=== PATIENT | female | born 1995 | race Caucasian/White ===

== ENCOUNTER → 2017-08-07 | Outpatient (CLI) | payer OTHER ==
[2017-08-07 18:21] LABS: BASO % 0.2 % (0.0-1.0); EOS % 0.5 % (0.0-3.0); HEMATOCRIT 41.1 % (36.0-47.0); HEMOGLOBIN 13.9 g/dl (12.0-15.5); IMMATURE GRANULOCYTE % 0.2 % (0-3.0); LYMPH # 1.7 10^3/uL (1.5-6.5); MEAN CORPUSCULAR HEMOGLOBIN 28.4 pg (27.0-33.0); MEAN CORPUSCULAR HGB CONC 33.8 g/dl (32.0-36.5); MONO # 0.2 10^3/uL (0.0-0.8); NEUTROPHILS # 2.3 10^3/uL (1.8-7.7); NEUTROPHILS % 54.1 % (36.0-66.0); PLATELET COUNT, AUTOMATED 148 10^3/uL (150-450); RED BLOOD COUNT 4.89 10^6/uL (4.00-5.40); RED CELL DISTRIBUTION WIDTH 11.8 % (11.5-14.5); WHITE BLOOD COUNT 4.2 10^3/uL (4.0-10.0)
[2017-08-07 20:27] LABS: CHLAMYDIA DNA AMPLIFICATION NEGATIVE (NEGATIVE); GC DNA AMPLIFICATION NEGATIVE (NEGATIVE)
[2017-08-08 10:40] LABS: RUBELLA IgG QUALITATIVE IMMUNE (IMMUNE)
[2017-08-08 11:03] LABS: HBsAg Prenatal NEGATIVE (NEGATIVE)
[2017-08-08 11:10] LABS: HIV 1&2 SCREEN CENTAUR NEGATIVE (NEGATIVE)
== END ==
LOC: M SMT 13:33
DX: Z3A.09 9 weeks gestation of pregnancy (principal)
CPT/HCPCS: 86762

== ENCOUNTER → 2017-09-04 | Outpatient (REF) | payer OTHER | LOC: M LAB REF 17:01 | DX: Z34.82 Encounter for supervision of other normal pregnancy, second trimester (principal); Z3A.00 Weeks of gestation of pregnancy not specified ==

== ENCOUNTER → 2017-10-13 | Outpatient (CLI) | payer OTHER | LOC: M RAD 12:16 | DX: Z34.82 Encounter for supervision of other normal pregnancy, second trimester (principal); Z3A.17 17 weeks gestation of pregnancy | CPT/HCPCS: 76811 ==

== ENCOUNTER → 2017-11-06 | Outpatient (CLI) | payer OTHER | LOC: M RAD 14:20 | DX: Z34.82 Encounter for supervision of other normal pregnancy, second trimester (principal); Z36.89 Encounter for other specified antenatal screening; Z3A.21 21 weeks gestation of pregnancy | CPT/HCPCS: 76816 ==

== ENCOUNTER → 2017-12-11 | Outpatient (CLI) | payer OTHER ==
[2017-12-11 13:11] LABS: HEMATOCRIT 32.6 % (36.0-47.0); HEMOGLOBIN 10.7 g/dl (12.0-15.5); MEAN CORPUSCULAR HEMOGLOBIN 29.6 pg (27.0-33.0); MEAN CORPUSCULAR HGB CONC 32.8 g/dl (32.0-36.5); MEAN CORPUSCULAR VOLUME 90.1 fl (80.0-96.0); PLATELET COUNT, AUTOMATED 208 10^3/uL (150-450); RED BLOOD COUNT 3.62 10^6/uL (4.00-5.40); RED CELL DISTRIBUTION WIDTH 12.5 % (11.5-14.5); WHITE BLOOD COUNT 6.1 10^3/uL (4.0-10.0)
[2017-12-11 13:33] LABS: GLUCOSE CHALLENGE TEST 1 HOUR 91 MG/DL (LESS THAN 140)
== END ==
LOC: M SMT 10:12
DX: Z34.82 Encounter for supervision of other normal pregnancy, second trimester (principal); Z36.89 Encounter for other specified antenatal screening
CPT/HCPCS: 82950

== ENCOUNTER → 2018-02-19 | Outpatient (REF) | payer OTHER | LOC: M LAB REF 17:36 | DX: Z34.03 Encounter for supervision of normal first pregnancy, third trimester (principal); Z36.85 Encounter for antenatal screening for Streptococcus B | CPT/HCPCS: 87186 ==

== ENCOUNTER 2018-03-15 20:30 | Inpatient (IN) | payer OTHER ==
[2018-03-15] MEDS ORDERED: OXYTOCIN DRIP 30 UNITS in APPROPRIATE DILUENT 1 EA IV (21:15)
[2018-03-15 21:41] LABS: HEMOGLOBIN 11.5 g/dl (12.0-15.5); MEAN CORPUSCULAR HEMOGLOBIN 27.4 pg (27.0-33.0); MEAN CORPUSCULAR HGB CONC 32.9 g/dl (32.0-36.5); MEAN CORPUSCULAR VOLUME 83.5 fl (80.0-96.0); PLATELET COUNT, AUTOMATED 184 10^3/uL (150-450); RED BLOOD COUNT 4.19 10^6/uL (4.00-5.40); RED CELL DISTRIBUTION WIDTH 14.6 % (11.5-14.5); WHITE BLOOD COUNT 8.8 10^3/uL (4.0-10.0)
[2018-03-15] MEDS: PENICILLIN G POTASSIUM IV 5 MU in D5W MINI-BAG PLUS 100 ML IV (22:22)
[2018-03-15] MEDS: LR 1,000 ML IV (22:22)
[2018-03-16] MEDS ORDERED: FENTANYL 2MCG/ML ROPIVACAINE 0.2% IN 0.9% NACL 200ML IVBAG As Ordered (02:01)
[2018-03-16] MEDS ORDERED: PENICILLIN G POTASSIUM IV 2.5 MU in APPROPRIATE DILUENT 1 EA IV (02:30)
[2018-03-16] MEDS ORDERED: EPIDURAL/PCA KEYS XX (02:38)
[2018-03-16] MEDS ORDERED: ePHEDrine SULFATE 25 MG/5 ML(5MG/ML) SYRINGE IV (02:38)
[2018-03-16] MEDS ORDERED: REFRIGERATOR IV KEYS XX (02:38)
[2018-03-16] MEDS ORDERED: diphenhydrAMINE INJ 50MG/ML VIAL (J1200) IV (02:38)
[2018-03-16] MEDS ORDERED: FENTANYL/ROPIVACAINE/NACL BAG 200 ML EPIDURAL (02:38)
[2018-03-16] MEDS ORDERED: EPIDURAL COMMENT XX (02:38)
[2018-03-16] MEDS ORDERED: ONDANSETRON 4MG/2ML VIAL (J2405) IV (02:38)
[2018-03-16] MEDS ORDERED: NALOXONE INJ 0.4 MG/1 ML VIAL (J2310) IV (02:38)
[2018-03-16] MEDS ORDERED: ePHEDrine SULFATE 25 MG/5 ML(5MG/ML) SYRINGE As Ordered (03:14)
[2018-03-16] MEDS ORDERED: DOCUSATE SODIUM 100 MG CAP PO (06:30)
[2018-03-16] MEDS ORDERED: MEASLES,MUMPS,RUBELLA VACCINE INJ (MMR-II) (90707) SC (06:30)
[2018-03-16] MEDS ORDERED: MOM 30ML SUSPENSION UDC PO (06:30)
[2018-03-16] MEDS ORDERED: ANUSOL HC CREAM 30GM TOP (06:30)
[2018-03-16] MEDS ORDERED: DIBUCAINE 1% OINTMENT 30GM TOP (06:30)
[2018-03-16] MEDS ORDERED: METHYLERGONOVINE MALEATE 0.2 MG TAB PO (06:30)
[2018-03-16] MEDS ORDERED: RHOGAM 300 MCG (1500 IU) INJ (J2790) IM (06:30)
[2018-03-16] MEDS: PRENATAL VITAMINS CHEWABLE TABLET PO (08:40)
[2018-03-16] MEDS: OXYTOCIN DRIP 30 UNITS in APPROPRIATE DILUENT 1 EA IV (08:40)
[2018-03-16] MEDS: ACETAMINOPHEN 500 MG TAB PO (20:20)
[2018-03-17] MEDS: PRENATAL VITAMINS CHEWABLE TABLET PO (07:31)
[2018-03-17] MEDS: IBUPROFEN 800 MG TAB PO (07:31)
[2018-03-17] MEDS: ACETAMINOPHEN 500 MG TAB PO (19:32)
[2018-03-18] MEDS: PRENATAL VITAMINS CHEWABLE TABLET PO (09:45)
== END 2018-03-18 12:50 | disposition home or self-care (01) | DRG 560 ==
LOC: M LDO 20:30 → M OBS 03-16 09:27 → M LDI 21:10
PROC: 10E0XZZ Delivery of Products of Conception, External Approach (ICD-10-PCS; principal; 2018-03-16)
DX: O48.0 Post-term pregnancy (principal); O64.5XX0 Obstructed labor due to compound presentation, not applicable or unspecified; O99.824 Streptococcus B carrier state complicating childbirth; Z37.0 Single live birth; Z3A.40 40 weeks gestation of pregnancy

== ENCOUNTER 2018-06-20 19:20 | Emergency (ER) | payer OTHER ==
[~2018-06-20] VITALS: Ht 154.9 cm; Wt 64.3 kg
[~2018-06-20 19:20] MED LIST: IBUP-1114 PO; MAPA500T2 PO; PRENTAB9 PO
[2018-06-20 21:03] LABS: BASO % 0.4 % (0.0-1.0); EOS % 0.6 % (0.0-3.0); HEMATOCRIT 40.2 % (36.0-47.0); HEMOGLOBIN 12.7 g/dl (12.0-15.5); LYMPH # 1.4 10^3/uL (1.5-6.5); LYMPH % 29.3 % (24.0-44.0); MEAN CORPUSCULAR HEMOGLOBIN 26.3 pg (27.0-33.0); MEAN CORPUSCULAR HGB CONC 31.6 g/dl (32.0-36.5); MEAN CORPUSCULAR VOLUME 83.4 fl (80.0-96.0); MONO # 0.3 10^3/uL (0.0-0.8); MONO % 7.3 % (0.0-5.0); NEUTROPHILS # 2.9 10^3/uL (1.8-7.7); NEUTROPHILS % 62.2 % (36.0-66.0); PLATELET COUNT, AUTOMATED 240 10^3/uL (150-450); RED BLOOD COUNT 4.82 10^6/uL (4.00-5.40); WHITE BLOOD COUNT 4.7 10^3/uL (4.0-10.0)
[2018-06-20 21:33] LABS: ALBUMIN 3.6 GM/DL (3.2-5.2); ALT/SGPT 113 U/L (12-78); BILIRUBIN,DIRECT 0.4 MG/DL (0.0-0.2); BILIRUBIN,TOTAL 0.6 MG/DL (0.2-1.0); BLOOD UREA NITROGEN 8 MG/DL (7-18); CALCIUM LEVEL 8.6 MG/DL (8.5-10.1); CARBON DIOXIDE LEVEL 27 MEQ/L (21-32); CHLORIDE LEVEL 106 MEQ/L (98-107); CREATININE FOR GFR 0.75 MG/DL (0.55-1.30); GLUCOSE, FASTING 109 MG/DL (70-100); HCG, SERUM QUANTITATIVE < 1.0 MIU/ML; LIPASE 367 U/L (73-393); POTASSIUM SERUM 3.7 MEQ/L (3.5-5.1); SODIUM LEVEL 140 MEQ/L (136-145); TOTAL PROTEIN 7.1 GM/DL (6.4-8.2)
[2018-06-20] MEDS ORDERED: KETOROLAC TROMETHAMINE 10 MG TAB PO ONE (22:15)
[2018-06-20 22:34] LABS: APPEARANCE, URINE CLEAR (CLEAR); BACTERIA, URINE AUTO NEGATIVE (NEGATIVE); BILIRUBIN, URINE AUTO NEGATIVE (NEGATIVE); BLOOD, URINE BLOOD NEGATIVE (NEGATIVE); COLOR, URINE YELLOW (YELLOW); GLUCOSE, URINE (UA) AUTO NEGATIVE (NEGATIVE); KETONE, URINE AUTO NEGATIVE (NEGATIVE); LEUKOCYTE ESTERASE, URINE AUTO NEGATIVE (NEGATIVE); NITRITE, URINE AUTO NEGATIVE (NEGATIVE); PROTEIN, URINE AUTO NEGATIVE (NEGATIVE); RBC, URINE AUTO 0 /HPF (0-3); SPECIFIC GRAVITY URINE AUTO 1.016 (1.002-1.035); SQUAMOUS EPITHELIAL CELL UR AU 1 /HPF (0-6); UROBILINOGEN, URINE AUTO 0.2 mg/dL (0.0-2.0); WBC, URINE AUTO 2 /HPF (0-3)
--- NOTE | 2018-06-20 23:33 | REPVR ---
EXAM: US Abdomen Limited, Right Upper Quadrant EXAM DATE/TIME: 06/20/2018 10:31 PM CLINICAL HISTORY: 22 years old, female; Pain; Abdominal pain; Epigastric; Additional info: Epigastric pain, elevated lft's TECHNIQUE: Real-time ultrasound of the abdomen with image documentation. Examination was focused on the right upper quadrant. COMPARISON: No relevant prior studies available. FINDINGS: Liver: Unremarkable. Gallbladder: Cholelithiasis without gallbladder wall thickening or pericholecystic fluid. Negative sonographic Deng's sign, as per the forestry foreman. Common bile duct: No stones. No ductal dilatation. Pancreas: Unremarkable as visualized. Right kidney: No mass. No definite stones. No hydronephrosis. IMPRESSION: Cholelithiasis without sonographic evidence of acute cholecystitis. Electronically signed by: Minh Dunne On 06/20/2018 23:32:58 PM
[2018-06-20] MEDS ORDERED: KETO10TAB PO (23:54)
[2018-06-20] MEDS ORDERED: ONDA4TAB6 PO (23:54)
[2018-06-21 00:10] VITALS: BP 125/88
== END 2018-06-21 00:21 | disposition home or self-care (01) ==
LOC: M ED 19:20
DX: K80.20 Calculus of gallbladder without cholecystitis without obstruction (principal); R10.13 Epigastric pain; R11.2 Nausea with vomiting, unspecified; J30.2 Other seasonal allergic rhinitis

== ENCOUNTER 2018-07-02 13:59 | Inpatient (IN) | payer OTHER ==
[~2018-07-02] VITALS: Ht 154.9 cm; Wt 60.8 kg
[~2018-07-02 13:59] MED LIST changes: +KETO10TAB PO; +ONDA4TAB6 PO
[2018-07-02] MEDS ORDERED: LARIN PO (14:05)
[2018-07-02] MEDS ORDERED: NS 1,000 ML IV ONE (14:15)
[2018-07-02 14:24] LABS: BASO % 0.4 % (0.0-1.0); EOS % 0.4 % (0.0-3.0); HEMATOCRIT 40.4 % (36.0-47.0); HEMOGLOBIN 13.4 g/dl (12.0-15.5); LYMPH # 1.8 10^3/uL (1.5-6.5); LYMPH % 41.3 % (24.0-44.0); MEAN CORPUSCULAR HGB CONC 33.2 g/dl (32.0-36.5); MEAN CORPUSCULAR VOLUME 81.5 fl (80.0-96.0); MONO # 0.3 10^3/uL (0.0-0.8); MONO % 6.7 % (0.0-5.0); NEUTROPHILS # 2.3 10^3/uL (1.8-7.7); PLATELET COUNT, AUTOMATED 248 10^3/uL (150-450); RED BLOOD COUNT 4.96 10^6/uL (4.00-5.40); WHITE BLOOD COUNT 4.5 10^3/uL (4.0-10.0)
[2018-07-02 14:47] LABS: HCG, SERUM QUALITATIVE NEGATIVE (NEGATIVE)
[2018-07-02 14:49] LABS: ALBUMIN 3.9 GM/DL (3.2-5.2); ALT/SGPT 75 U/L (12-78); AMYLASE 75 U/L (25-115); BILIRUBIN,TOTAL 2.7 MG/DL (0.2-1.0); BLOOD UREA NITROGEN 11 MG/DL (7-18); CALCIUM LEVEL 8.5 MG/DL (8.5-10.1); CARBON DIOXIDE LEVEL 25 MEQ/L (21-32); CHLORIDE LEVEL 108 MEQ/L (98-107); CREATININE FOR GFR 0.91 MG/DL (0.55-1.30); GLUCOSE, FASTING 91 MG/DL (70-100); LIPASE 109 U/L (73-393); SODIUM LEVEL 141 MEQ/L (136-145); TOTAL PROTEIN 7.6 GM/DL (6.4-8.2)
--- NOTE | 2018-07-02 15:36 | REP ---
GALLBLADDER ULTRASOUND: HISTORY: Right upper quadrant pain. There are multiple stones and sludge in the gallbladder. The gallbladder wall measures 2.2 mm. The common bile duct is dilated measuring 12.9 mm. A 5 mm stone is present in the distal common bile duct. There is mild dilatation of the intrahepatic biliary system. The pancreas is not well seen. The right kidney measures 5 cm in transverse by 3.6 cm in AP by 9.8 cm in cephalocaudal dimensions. There is no hydronephrosis or mass. There is no free fluid. IMPRESSION: Cholelithiasis. There is diltation of the common bile duct secondary to a 5 mm stone present in the distal common bile duct. Electronically Signed by Stef Cummings MD 07/02/2018 03:37 P
[2018-07-02] MEDS: MORPHINE 4 MG/ML 1ML VIAL/SYRINGE (J2270) IV PRN ×2 (16:24→17:08)
[2018-07-02] MEDS ORDERED: PIPERACILLIN/TAZOBACTAM SOD 3.375 GM in D5W MINI-BAG PLUS 50 ML IV ONE (17:30)
[2018-07-02] MEDS ORDERED: KETO10TAB PO (18:16)
[2018-07-02] MEDS ORDERED: ONDA4TAB6 PO (18:16)
[2018-07-02] MEDS ORDERED: LARI1TAB3 PO (18:16)
[2018-07-02 19:56] LABS: ALBUMIN 3.4 GM/DL (3.2-5.2); BILIRUBIN,TOTAL 1.6 MG/DL (0.2-1.0); TOTAL PROTEIN 6.8 GM/DL (6.4-8.2)
--- NOTE | 2018-07-02 22:26 | REPVR ---
EXAM: MR Abdomen Without Contrast. Liver. EXAM DATE/TIME: 07/02/2018 9:00 PM CLINICAL HISTORY: 22 years old, female; Abnormal findings; Abnormal radiologic finding of the abdomen; Radiologic exam and body structure: Gb u/s; Patient HX: Pain; Additional info: Choledocholithiasis TECHNIQUE: MR Abdomen without contrast. Exam focused on the liver. COMPARISON: GALLBLADDER US 07/02/2018 2:33 PM FINDINGS: Liver: Visualized liver unremarkable. Gallbladder and bile ducts: Cholelithiasis with multiple small stones demonstrated within the lumen of the gallbladder. No gallbladder wall thickening or pericholecystic fluid. Common bile duct dilated to 12 mm. Small 3.5 mm calculus demonstrated in the distal common bile duct consistent with choledocholithiasis. Mild dilatation of the intrahepatic biliary system demonstrated as well. Pancreas: Pancreas unremarkable. Spleen: Spleen unremarkable. Adrenals: Adrenals unremarkable Kidneys and ureters: Kidneys unremarkable. Other findings: Visualized bowel within normal limits. IMPRESSION: 1. Cholelithiasis with multiple small stones demonstrated within the lumen of the gallbladder. No gallbladder wall thickening or pericholecystic fluid. 2. Common bile duct dilated to 12 mm. Small 3.5 mm calculus demonstrated in the distal common bile duct consistent with choledocholithiasis. Mild dilatation of the intrahepatic biliary system demonstrated as well. Electronically signed by: Aron Jenkins On 07/02/2018 22:26:32 PM
[2018-07-02] MEDS ORDERED: ACETAMINOPHEN TAB 650MG DOSE (2X325MG) PO PRN (22:30)
[2018-07-02 23:00] VITALS: BP 117/55
--- NOTE | 2018-07-02 23:05 | HPEPDOC ---
[facility] Medical History & Physical Date of Admission Jul 02, 2018 Other Provider PCP: Can Pastor Attending Physician: MARIA GUADALUPE MAI MD History and Physical CHIEF COMPLAINT: Abdominal Pain HISTORY OF PRESENT ILLNESS: Patient is a 22-year-old female without any significant past medical history who presents for abdominal pain, with nausea. She admits to one episode of vomiting this morning. She denies any change in bowel habit. Abdominal pain is exacerbated with eating. She states that this has been going on for several months. Evaluation on the ED patient had elevated total bilirubin, as well as direct bilirubin, AST was elevated. Repeat levels of total bilirubin, direct bilirubin, AST, had showed improvement. Her pain was controlled with morphine in the ED. Abdominal ultrasound was positive for cholelithiasis, with a dilation of Common bile duct. Hospitalist team was called for admission with GI and surgery for consultation. PAST MEDICAL HISTORY: None PAST SURGICAL HISTORY: None SOCIAL HISTORY: Denies alcohol, denies tobacco use FAMILY HISTORY: Noncontributory ALLERGIES: Please see below. Review of systems CONSTITUTIONAL: No fevers, denies chills, denies weight loss, denies lethargy HEENT: No rhinorrhea, no itchy eyes, no congesion, CARDIOVASCULAR: No murmurs no palpitations and arrhythmias RESPIRATORY: Not cough, No SOB, no issues to report GASTROINTESTINAL: Admits to abdominal pain, with nausea, one episode of vomiting, no diarrhea, no pain with the HEMATOLOGICAL: No bleeding GENITOURINARY:No Issues HEMATOLOGIC/LYMPHATIC: No swelling Physical Exam VITALS: See Below GENERAL APPEARANCE: Alert no acute distress. SKIN: Warm, well perfused. LUNGS: Clear to auscultation bilaterally. HEART: Normal S1, S2. No murmurs, no rubs, no gallops ABDOMEN: Soft, no masses, bowel sounds present, tender to palpate. Patient right upper quadrant, negative Deng sign 'TRUNK/SPINE:Straight. EXTREMITIES: Moves all extremities equally. No gross deformities. PULSES: 2+ upper and lower extremity . HOME MEDICATIONS: Please see below. LABORATORY DATA: See below. IMAGING: Gallbladder Ultrasound Cholelithiasis. There is diltation of the common bile duct secondary to a 5 mm stone present in the distal common bile duct. Abdominal MRI: 1. Cholelithiasis with multiple small stones demonstrated within the lumen of the gallbladder. No gallbladder wall thickening or pericholecystic fluid. 2. Common bile duct dilated to 12 mm. Small 3.5 mm calculus demonstrated in the distal common bile duct consistent with choledocholithiasis. Mild dilatation of the intrahepatic biliary system demonstrated as well. MICROBIOLOGY: Please see below. ASSESSMENT/PLAN: 3-year-old female presenting for abdominal pain. Ultrasound and MRI of the abdomen confirmed cholelithiasis. Surgery and GI has been consulted. Gastrointestinal is planning ERCP on patient tomorrow, patient remain nothing by mouth. IV fluid support, by mouth pain medication on board. DVT prophylaxis -Compression stockings, TEDS Vital Signs Vital Signs Date Time Temp Pulse Resp B/P (MAP) Pulse Ox O2 Delivery O2 Flow Rate FiO2 07/02/18 22:28 98.9 65 18 115/66 (82) 97 Room Air Laboratory Data Labs 24H Laboratory Tests 2 07/02/18 14:16: Immature Granulocyte % (Auto) 0.2, White Blood Count 4.5, Red Blood Count 4.96, Hemoglobin 13.4, Hematocrit 40.4, Mean Corpuscular Volume 81.5, Mean Corpuscular Hemoglobin 27.0, Mean Corpuscular Hemoglobin Concent 33.2, Red Cell Distribution Width 13.7, Platelet Count 248, Neutrophils (%) (Auto) 51.0, Lymphocytes (%) (Auto) 41.3, Monocytes (%) (Auto) 6.7H, Eosinophils (%) (Auto) 0.4, Basophils (%) (Auto) 0.4, Neutrophils # (Auto) 2.3, Lymphocytes # (Auto) 1.8, Monocytes # (Auto) 0.3, Eosinophils # (Auto) 0.0, Basophils # (Auto) 0.0, Nucleated Red Blood Cells % (auto) 0.0, Anion Gap 8, Calcium Level 8.5, Aspartate Amino Transf (AST/SGOT) 73H, Alanine Aminotransferase (ALT/SGPT) 75, Alkaline Phosphatase 74, Total Bilirubin 2.7H, Direct Bilirubin 2.0H, Total Protein 7.6, Albumin 3.9, Albumin/Globulin Ratio 1.05, Amylase Level 75, Lipase 109, Human Chorionic Gonadotropin, Qual NEGATIVE 07/02/18 19:15: Aspartate Amino Transf (AST/SGOT) 61H, Alanine Aminotransferase (ALT/SGPT) 65, Alkaline Phosphatase 66, Total Bilirubin 1.6H, Direct Bilirubin 1.0H, Total Protein 6.8, Albumin 3.4, Albumin/Globulin Ratio 1.00 CBC/BMP Laboratory Tests 07/02/18 14:16 Red Blood Count 4.96, Mean Corpuscular Volume 81.5, Mean Corpuscular Hemoglobin 27.0, Mean Corpuscular Hemoglobin Concent 33.2, Red Cell Distribution Width 13 .7, Neutrophils (%) (Auto) 51.0, Lymphocytes (%) (Auto) 41.3, Monocytes (%) (Auto) 6.7 H, Eosinophils (%) (Auto) 0.4, Basophils (%) (Auto) 0.4, Neutrophils # (Auto) 2.3, Lymphocytes # (Auto) 1.8, Monocytes # (Auto) 0.3, Eosinophils # (Auto) 0.0, Basophils # (Auto) 0.0 Home Medications Scheduled (Arlet Fe 05/31 1-20 mg-Mcg) 1 Tab Tab, 1 TAB PO DAILY Scheduled PRN Ketorolac Tromethamine (Ketorolac Tromethamine) 10 Mg Tab, 10 MG PO Q6H PRN for PAIN Ondansetron (Ondansetron Odt) 4 Mg Tab, 4 MG PO Q6-8HP PRN for nausea/vomiting Allergies Coded Allergies: SEASONAL ALLERGIES (Verified Allergy, Mild, 03/15/18) GME ATTESTATION GME ATTESTATION My faculty preceptor for this patient encounter was physically present during the encounter and was fully available. All aspects of the patient interview, examination, medical decision making process, and medical care plan development were reviewed and approved by the faculty preceptor. The faculty preceptor is aware and concurs with the plan as stated in the body of this note and will attest to such by his/her cosignature. JONNY DELGADO DO Jul 02, 2018 23:05
[2018-07-02] MEDS: NS 1,000 ML IV SCH (23:48)
[2018-07-03] VITALS (8 sets, daily range): BP systolic 115–175; BP diastolic 60–85
[2018-07-03 07:19] LABS: HEMATOCRIT 34.5 % (36.0-47.0); MEAN CORPUSCULAR HEMOGLOBIN 26.9 pg (27.0-33.0); MEAN CORPUSCULAR HGB CONC 32.5 g/dl (32.0-36.5); MEAN CORPUSCULAR VOLUME 82.9 fl (80.0-96.0); PLATELET COUNT, AUTOMATED 178 10^3/uL (150-450); RED BLOOD COUNT 4.16 10^6/uL (4.00-5.40); WHITE BLOOD COUNT 5.4 10^3/uL (4.0-10.0)
[2018-07-03 07:24] LABS: HEMOGLOBIN 11.2 g/dl (12.0-15.5)
[2018-07-03 07:44] LABS: ALBUMIN 2.9 GM/DL (3.2-5.2); ALT/SGPT 53 U/L (12-78); BILIRUBIN,TOTAL 0.8 MG/DL (0.2-1.0); BLOOD UREA NITROGEN 9 MG/DL (7-18); CALCIUM LEVEL 7.7 MG/DL (8.5-10.1); CARBON DIOXIDE LEVEL 20 MEQ/L (21-32); CHLORIDE LEVEL 111 MEQ/L (98-107); CREATININE FOR GFR 0.63 MG/DL (0.55-1.30); GLUCOSE, FASTING 63 MG/DL (70-100); POTASSIUM SERUM 3.8 MEQ/L (3.5-5.1); SODIUM LEVEL 140 MEQ/L (136-145); TOTAL PROTEIN 6.3 GM/DL (6.4-8.2)
[2018-07-03] MEDS: NS 1,000 ML IV SCH (07:55)
[2018-07-03] MEDS: PERCOCET 5MG/325MG TAB PO PRN ×2 (08:37→18:44)
[2018-07-03] MEDS ORDERED: PANTOPRAZOLE 40MG TAB (PROTONIX) PO SCH (09:00)
--- NOTE | 2018-07-03 09:33 | CR.PDOC ---
General Date of Consultation: Jul 02, 2018 Referring Provider: VERITO FIORE Attending Physician: CASH FOLEY MD Consultation Reason for consult: Abdominal pain and suspected CBD stone. HPI: 22-year-old female without any significant past medical history who presents for abdominal pain, with nausea. She admits to one episode of vomiting this morning. She denies any change in bowel habit. Abdominal pain is exacerbated with eating. She states that this has been going on for several months. Her pain was controlled with morphine in the ED. Abdominal ultrasound was positive for cholelithiasis, with a dilation of Common bile duct. Gi consulted for CBD stones. Patient reports the abdominal pain is in epigastric and right upper quadrant area, worsenig with food intake and Pertinent negative GI symptoms: Patient denies diarrhea, abdominal pain, loss of appetite, early satiety or unintentional weight loss. No history of hematemesis, melena or hematochezia. Patient reports constipation. Review of Systems: GI: as stated above CVS: No chest pain, No palpitations, No leg swelling. RS: No Shortness of breath, No Wheezing, no cough FRICTION SAW OPERATOR: No dizziness, No motor weakness, No sensory problems Hematology: No bruising, No gum bleeding, Musculoskeletal: No joint pain, ambulating well. Skin: No rash : No hematuria, No burning sensation of the urine ENT: No ear discharge/ pain, No dysphagia. Eyes: No photophobia. Jaundice Home medications: reviewed. Antithrombotic agents - None Medical h/o: As above. Surgical h/o: None on abdomen. Social h/o: Alcohol - social , smoking - denies, IVDA/ drugs - Denies. . Family h/o of GI cancers - None Prior Endoscopies: None. Prior GI evaluations: None in [facility] Exam: Vitals: reviewed General: Alert and oriented x 3, not in distress HEENT: NO pallor, no icterus. Normal oropharynx, NO cervical lymph nodes. Chest: symmetric with bilateral clear air entry, CVS: S1, S2 heard, normal, no murmurs . Abdomen: non-distended, no surgical scars, soft, mild epigastric tenderness, no rigidity, guarding, no palpable masses, normal bowel sounds heard. Rectal exam: Patient refused. Extremities: no pedal edema, pulses palpable. FRICTION SAW OPERATOR: no focal motor or sensory deficits. Moves all extremities Skin: no rash. Labs: reviewed. Imaging: reviewed Impression: - CBD stones with dilated CBD ( confirmed in MRCP), with epigastric pain -- Likely symptomatic CBD stones. - Gallstones with biliary colic. Recommendations: - Patient educated about the test results, possible differential diagnoses and All questions answered. - IV hydration with ringers lactate. - NPO. - Will schedule for ERCP. - The procedure, indications, risks (bleeding, perforation, infection, hypotension, respiratory depression, allergy, need for endotracheal intubation, surgery, colostomy, cardiac arrest, even ), benefits, limitations (e.g., missing a lesion), and all other alternatives (including no intervention) were explained to the patient who understood and agreed for the procedure. Plan of care discussed with patient and primary team. Patient verbalized understanding and agreed with the plan. Laboratory Data CBC/BMP Laboratory Tests 07/02/18 14:16 Red Blood Count 4.96, Mean Corpuscular Volume 81.5, Mean Corpuscular Hemoglobin 27.0, Mean Corpuscular Hemoglobin Concent 33.2, Red Cell Distribution Width 13.7, Neutrophils (%) (Auto) 51.0, Lymphocytes (%) (Auto) 41.3, Monocytes (%) (Auto) 6.7 H, Eosinophils (%) (Auto) 0.4, Basophils (%) (Auto) 0.4, Neutrophils # (Auto) 2.3, Lymphocytes # (Auto) 1.8, Monocytes # (Auto) 0.3, Eosinophils # (Auto) 0.0, Basophils # (Auto) 0.0 07/03/18 06:35 Red Blood Count 4.16, Mean Corpuscular Volume 82.9, Mean Corpuscular Hemoglobin 26.9 L, Mean Corpuscular Hemoglobin Concent 32.5, Red Cell Distribution Width 13.9 Allergies Coded Allergies: SEASONAL ALLERGIES (Verified Allergy, Mild, 03/15/18) Home Medications Scheduled (Arlet Fe 05/31 1-20 mg-Mcg) 1 Tab Tab, 1 TAB PO DAILY, (Reported) Scheduled PRN Ketorolac Tromethamine (Ketorolac Tromethamine) 10 Mg Tab, 10 MG PO Q6H PRN for PAIN, (Reported) Ondansetron (Ondansetron Odt) 4 Mg Tab, 4 MG PO Q6-8HP PRN for nausea/vomiting, (Reported) CASH FOLEY MD Jul 03, 2018 09:33
--- NOTE | 2018-07-03 13:39 | CR ---
DATE OF CONSULTATION: 07/03/2018 CHIEF COMPLAINT: Abdominal pain. HISTORY OF PRESENT ILLNESS: The patient is a 22-year-old female. She has had intermittent right upper quadrant pain since the of her child last Fall. She has been into the emergency room (ER) a couple of times for these symptoms in the past couple of months. She was scheduled to see one of the surgeons in our office; her, prior to get that appointment made, she came back into the ER last evening due to sudden increase in the pain. In the ER, her bilirubins were elevated. Imaging shows chows cholelithiasis. Dr. Lott has already been consulted and plans to do an ERCP today. I came to see her this morning. She says that since getting morphine in the ER last evening her pain has resolved. She denies any nausea or vomiting. No fevers or chills. She is very hungry right now and has no other current complaints. PAST MEDICAL HISTORY: Negative. PAST SURGICAL HISTORY: Negative. SOCIAL HISTORY: Denies drug, alcohol or tobacco abuse. FAMILY HISTORY: Noncontributory. ALLERGIES: SEASONAL. HOME MEDICATIONS: None. REVIEW OF SYSTEMS: Pertinent positives and negatives as stated in the history of present illness (HPI). PHYSICAL EXAMINATION: General: Alert and oriented times three in no acute distress. Vitals: Temperature 98.1, pulse 70, respirations 16, blood pressure 117/55, pulse oximetry 99% in room air. HEENT: Pupils equally round and react to light and accommodation. Heart: S1 and S2, regular rate and rhythm. Lungs: Clear to auscultation bilaterally. Abdomen: Soft. Tender to palpation right upper quadrant with localized guarding only. No rebounding or rigidity. Extremities: No clubbing, cyanosis or edema. LABORATORY DATA: White count 5.4, hemoglobin 11.2, platelets 178. Total bilirubin was 2.7 on admission, down to 1.6 last evening and down to 0.8 this morning. AST 43, ALT 53, and alkaline phosphatase 56. IMAGING: Ultrasound of the gallbladder shows cholelithiasis with dilation of the common bile duct secondary to a 5 mm stone present in the distal common bile duct. This was followed up by an MRCP which was completed after her pain had stopped and it still showed dilated common bile duct at 12 mm with a 3.5 mm calculus in the distal common bile duct. ASSESSMENT/PLAN: The patient is a 22-year-old female with choledocholithiasis and cholelithiasis. The plan is for an ERCP this afternoon with Dr. Lott. Due to the insufflation from that, we will be unable to do her cholecystectomy today. Therefore, recommendation is to discharge her home either this evening or tomorrow morning. She can follow up with me in the office next Friday or . We will plan for elective outpatient surgery in the next few weeks. I have discussed this in detail with her. She understands and agrees and will call our office to schedule appointment.
[2018-07-03] MEDS ORDERED: ISOVUE-300 61% 50ML VIAL (Q9967) As Ordered ONE (13:56)
--- NOTE | 2018-07-03 14:32 | IPN ---
DATE: 07/03/2018 The patient was examined at bedside. Currently is nothing by mouth and awaiting endoscopic retrograde cholangiopancreatography (ERCP) with Dr. Lott today. She has no complaints. She states that her nausea and vomiting have resolved and that her abdominal pain is much improved this morning. She states that she had a sudden onset of mid epigastric pain that extended over to the right side of her upper abdomen, associated with nausea and on admission was found to have dilated common bile duct and gallstones. No other complaints today. PHYSICAL EXAMINATION: VITAL SIGNS: Temperature 98.1, pulse 70, respirations 16, blood pressure 117/55, MAP of 75, pulse oximetry 99% on room air. GENERAL: Resting comfortably in bed. No acute distress. Alert and oriented times three. HEENT: Normocephalic, atraumatic. Extraocular muscles are intact. Anicteric sclerae. Moist mucous membranes. Supple neck. CARDIAC: Regular rate and rhythm. No murmur, clicks or gallops. LUNGS: Clear to auscultation bilaterally. No wheezing, rhonchi or rales. ABDOMEN: Soft, nondistended. Mild discomfort to deep palpation in the right upper quadrant. Normoactive bowel sounds. No guarding, rigidity or rebound. EXTREMITIES: No edema. 2+ radial pulses bilaterally. SKIN: No visible rashes or lesions. LABORATORIES: WBC 5.4, hemoglobin and hematocrit 11.2 and 34.5, platelets 178. BUN and creatinine are 9 and 0.63. AST 43, ALT 53. IMPRESSION AND PLAN: This is a 22-year-old female who presented with nausea, vomiting, right upper quadrant abdominal pain and found to have stones in her gallbladder and dilated common bile duct. 1. Cholelithiasis with choledocholithiasis. The patient is currently nothing by mouth and on IV fluids, awaiting ERCP with Dr. Lott today. Pain is well controlled. Dr. Arredondo has already been consulted for the cholelithiasis and recommends outpatient followup in the office. No plan for cholecystectomy currently. The patient has been updated regarding the plan of care. 2. Deep vein thrombosis (DVT) prophylaxis. TEDs and sequential compression device (SCD). DISPOSITION: Pending clinical improvement and awaiting ERCP today. Likely discharge in the next 1 to 2 days. My faculty preceptor for this patient encounter was physically present during the encounter and was fully available. All aspects of the patient interview, examination, medical decision making process, and medical care plan development were reviewed and approved by the faculty preceptor. The faculty preceptor is aware and concurs with the plan as stated in the body of this note and will attest to such by his/her co-signature.
[2018-07-03] MEDS ORDERED: NEOSTIGMINE 10 MG/10 ML VIAL (J2710) As Ordered ONE (14:37)
[2018-07-03] MEDS ORDERED: PROPOFOL 200 MG/20 ML VIAL As Ordered ONE (14:37)
[2018-07-03] MEDS ORDERED: GLYCOPYRROLATE INJ 0.2 MG/ML 2 ML VIAL As Ordered ONE (14:37)
[2018-07-03] MEDS ORDERED: ONDANSETRON 4MG/2ML VIAL (J2405) As Ordered ONE (14:37)
[2018-07-03] MEDS ORDERED: LIDOCAINE 2% INJ 100 MG/5 ML SDV (FOR ANES.) As Ordered ONE (14:37)
[2018-07-03] MEDS ORDERED: dexameTHASONE 4 MG/ML 1ML VIAL (J1100) As Ordered ONE (14:37)
[2018-07-03] MEDS ORDERED: ROCURONIUM BROMIDE 50 MG/5 ML VIAL As Ordered ONE (14:37)
[2018-07-03] MEDS ORDERED: fentaNYL 100 MCG/2 ML INJECTION (J3010) As Ordered ONE (14:38)
[2018-07-03] MEDS ORDERED: MIDAZOLAM INJ 2 MG/2 ML VIAL (J2250) As Ordered ONE (14:39)
[2018-07-03] MEDS ORDERED: EPINEPHrine 1MG/10ML SYRINGE 1.5IN As Ordered ONE (15:40)
[2018-07-03] MEDS ORDERED: ePHEDrine SULFATE 25 MG/5 ML(5MG/ML) SYRINGE As Ordered ONE (15:44)
[2018-07-03] MEDS ORDERED: PERCOCET 5MG/325MG TAB PO PRN (16:15)
[2018-07-03] MEDS ORDERED: LR 1,000 ML IV SCH (16:15)
[2018-07-03] MEDS ORDERED: fentaNYL 100 MCG/2 ML INJECTION (J3010) IV PRN (16:15)
[2018-07-03] MEDS ORDERED: HYDROMORPHONE HCL 0.5 MG/ 0.5 ML SYRINGE (J1170 PER 1) IV PRN (16:15)
[2018-07-03] MEDS ORDERED: ONDANSETRON 4MG/2ML VIAL (J2405) IV PRN (16:15)
--- NOTE | 2018-07-03 16:42 | ROOR ---
Patient Name: Martínez Tran Procedure Date: 07/03/2018 2:51 PM Date of : 1995 Age: 22 Room: Main OR Gender: Female Note Status: Finalized Procedure: ERCP Indications: Evaluation and possible treatment of bile duct stone(s) Providers: Esteban Lott MD Referring MD: Elvin Ruiz Md Requesting Provider: Medicines: Monitored Anesthesia Care Complications: No immediate complications. Procedure: Pre-Anesthesia Assessment: - Prior to the procedure, a History and Physical was performed, and patient medications and allergies were reviewed. The patient is competent. The risks and benefits of the procedure and the sedation options and risks were discussed with the patient. All questions were answered and informed consent was obtained. Patient identification and proposed procedure were verified by the physician, the nurse and the anesthesiologist in the procedure room. Mental Status Examination: alert and oriented. Airway Examination: normal oropharyngeal airway and neck mobility. Respiratory Examination: clear to auscultation. CV Examination: normal. Prophylactic Antibiotics: The patient does not require prophylactic antibiotics. Prior Anticoagulants: The patient has taken no previous anticoagulant or antiplatelet agents. ASA Grade Assessment: I - A normal, healthy patient. After reviewing the risks and benefits, the patient was deemed in satisfactory condition to undergo the procedure. The anesthesia plan was to use general anesthesia. Immediately prior to administration of medications, the patient was re-assessed for adequacy to receive sedatives. The heart rate, respiratory rate, oxygen saturations, blood pressure, adequacy of pulmonary ventilation, and response to care were monitored throughout the procedure. The physical status of the patient was re-assessed after the procedure. The Duodenoscope was introduced through the mouth, and advanced to the duodenum and used to inject contrast into the bile duct. The ERCP was accomplished without difficulty. The patient tolerated the procedure well. Findings: The battery starter film was normal. The esophagus was successfully intubated under direct vision. The scope was advanced to a normal major papilla in the descending duodenum without detailed examination of the pharynx, larynx and associated structures, and upper GI tract. The upper GI tract was grossly normal. 0.035 inch x 260 cm straight Hydra Jagwire was passed into the biliary tree. The short-nosed traction sphincterotome was passed over the guidewire and the bile duct was then deeply cannulated. Contrast was injected. I personally interpreted the bile duct images. Ductal flow of contrast was adequate. Image quality was adequate. Contrast extended to the entire biliary tree. The main bile duct was diffusely dilated, with a stone causing an obstruction. The largest diameter was 12 mm. Biliary sphincterotomy was made with a monofilament traction (standard) sphincterotome using ERBE electrocautery. The sphincterotomy oozed blood. The biliary tree was swept with a 12 mm balloon starting at the bifurcation. One stone was removed. No stones remained. Area was successfully injected with 2 mL of a 1:10,000 solution of epinephrine through the ERCP scope for hemostasis. Occlusion cholangiogram at the end of the procedure did not show any residual filling defects. Pancreatic duct was neither cannulated nor opacified. Impression: - An area successfully injected. - The entire main bile duct was dilated, with a stone causing an obstruction. - Choledocholithiasis was found. Complete removal was accomplished by biliary sphincterotomy and balloon extraction. - A biliary sphincterotomy was performed. - The biliary tree was swept. Recommendation: - Avoid aspirin and nonsteroidal anti-inflammatory medicines. - The patient will be observed post-procedure, until all discharge criteria are met. - Patient has a contact number available for emergencies. The signs and symptoms of potential delayed complications were discussed with the patient. Return to normal activities tomorrow. Written discharge instructions were provided to the patient. - Clear liquid diet for 1 day, then advance as tolerated to resume previous diet. - Check liver enzymes (AST, ALT, alkaline phosphatase, bilirubin), hemoglobin and hematocrit q 6 hours for one day. - Telephone endoscopist if symptomatic today. - Use Protonix (pantoprazole) 40 mg IV twice daily - to be taken in morning (1/2 hour before breakfast) and at bedtime ( atleast 3 hours after last meal) for 1 day. - Return to primary care physician. - Refer to a surgeon. Esteban Lott MD Esteban Lott MD 07/03/2018 4:41:25 PM This report has been signed electronically. Number of Addenda: 0 Note Initiated On: 07/03/2018 2:51 PM Estimated Blood Loss: Estimated blood loss was minimal.
--- NOTE | 2018-07-03 16:56 | REP ---
ERCP in OR: 07/03/2018. Clinical history: Cholelithiasis. Choledocholithiasis. Comparison: Gallbladder ultrasound and MRCP 07/02/2018. Findings: Multiple images from fluoroscopy provided to Dr. Ruiz of the gastroenterology division are reviewed. Passage of a wire and catheter into the common duct with contrast injection demonstrated dilatation of common duct and proximal intrahepatic ducts. Balloon catheter than passed with the balloon inflated and pulled back. No filling defect is identified at the conclusion of the examination within that common duct. No filling defect or air bubbles within the intrahepatic ducts or common hepatic duct on any of the images. Fluoroscopy time: 1 minute 39 seconds. Electronically Signed by Kal Coburn MD 07/03/2018 07:56 P
[2018-07-03] MEDS: LR 1,000 ML IV SCH ×2 (17:12→22:06)
[2018-07-03 18:33] LABS: BASO % 0.3 % (0.0-1.0); HEMATOCRIT 39.6 % (36.0-47.0); HEMOGLOBIN 12.7 g/dl (12.0-15.5); LYMPH # 0.7 10^3/uL (1.5-6.5); LYMPH % 11.4 % (24.0-44.0); MEAN CORPUSCULAR HEMOGLOBIN 26.7 pg (27.0-33.0); MEAN CORPUSCULAR HGB CONC 32.1 g/dl (32.0-36.5); MEAN CORPUSCULAR VOLUME 83.2 fl (80.0-96.0); MONO # 0.1 10^3/uL (0.0-0.8); MONO % 0.8 % (0.0-5.0); NEUTROPHILS # 5.5 10^3/uL (1.8-7.7); NEUTROPHILS % 87.2 % (36.0-66.0); PLATELET COUNT, AUTOMATED 190 10^3/uL (150-450); RED BLOOD COUNT 4.76 10^6/uL (4.00-5.40); WHITE BLOOD COUNT 6.3 10^3/uL (4.0-10.0)
[2018-07-03 19:00] LABS: ALBUMIN 3.4 GM/DL (3.2-5.2); ALT/SGPT 60 U/L (12-78); BILIRUBIN,DIRECT 0.5 MG/DL (0.0-0.2); BLOOD UREA NITROGEN 8 MG/DL (7-18); CREATININE FOR GFR 0.74 MG/DL (0.55-1.30); TOTAL PROTEIN 6.9 GM/DL (6.4-8.2)
[2018-07-03] MEDS: PANTOPRAZOLE 40MG INJ (PROTONIX) (C9113) IV SCH (22:06)
[2018-07-04] VITALS (8 sets, daily range): BP systolic 111–141; BP diastolic 57–90
[2018-07-04 00:34] LABS: HEMOGLOBIN 12.1 g/dl (12.0-15.5); LYMPH # 0.7 10^3/uL (1.5-6.5); LYMPH % 17.7 % (24.0-44.0); MEAN CORPUSCULAR HEMOGLOBIN 26.8 pg (27.0-33.0); MEAN CORPUSCULAR HGB CONC 32.7 g/dl (32.0-36.5); MEAN CORPUSCULAR VOLUME 81.9 fl (80.0-96.0); NEUTROPHILS # 3.1 10^3/uL (1.8-7.7); PLATELET COUNT, AUTOMATED 214 10^3/uL (150-450); RED BLOOD COUNT 4.52 10^6/uL (4.00-5.40); WHITE BLOOD COUNT 3.9 10^3/uL (4.0-10.0)
[2018-07-04 00:36] LABS: ALBUMIN 3.4 GM/DL (3.2-5.2); ALT/SGPT 57 U/L (12-78); BILIRUBIN,DIRECT 0.4 MG/DL (0.0-0.2); BILIRUBIN,TOTAL 0.8 MG/DL (0.2-1.0); BLOOD UREA NITROGEN 7 MG/DL (7-18); CREATININE FOR GFR 0.87 MG/DL (0.55-1.30)
[2018-07-04] MEDS: KCL 10MEQ/100ML SWI (KRUN) 10 MEQ in APPROPRIATE DILUENT 1 EA IV SCH ×2 (01:00→22:00)
[2018-07-04] MEDS: MORPHINE 4 MG/ML 1ML VIAL/SYRINGE (J2270) IV PRN ×5 (02:23→18:55)
[2018-07-04] MEDS: PERCOCET 5MG/325MG TAB PO PRN ×4 (02:35→15:52)
[2018-07-04] MEDS: LR 1,000 ML IV SCH ×5 (03:30→22:00)
[2018-07-04 08:19] LABS: BASO % 0.1 % (0.0-1.0); HEMATOCRIT 36.5 % (36.0-47.0); LYMPH # 1.4 10^3/uL (1.5-6.5); LYMPH % 17.1 % (24.0-44.0); MEAN CORPUSCULAR HEMOGLOBIN 26.8 pg (27.0-33.0); MEAN CORPUSCULAR HGB CONC 32.9 g/dl (32.0-36.5); MEAN CORPUSCULAR VOLUME 81.7 fl (80.0-96.0); MONO # 0.4 10^3/uL (0.0-0.8); NEUTROPHILS # 6.5 10^3/uL (1.8-7.7); NEUTROPHILS % 77.4 % (36.0-66.0); PLATELET COUNT, AUTOMATED 215 10^3/uL (150-450); RED BLOOD COUNT 4.47 10^6/uL (4.00-5.40); WHITE BLOOD COUNT 8.4 10^3/uL (4.0-10.0)
[2018-07-04 08:47] LABS: ALT/SGPT 46 U/L (12-78); BILIRUBIN,DIRECT 0.3 MG/DL (0.0-0.2); BILIRUBIN,TOTAL 0.5 MG/DL (0.2-1.0); BLOOD UREA NITROGEN 6 MG/DL (7-18); CALCIUM LEVEL 8.3 MG/DL (8.5-10.1); CARBON DIOXIDE LEVEL 24 MEQ/L (21-32); CHLORIDE LEVEL 109 MEQ/L (98-107); GLUCOSE, FASTING 133 MG/DL (70-100); SODIUM LEVEL 142 MEQ/L (136-145); TOTAL PROTEIN 6.1 GM/DL (6.4-8.2)
[2018-07-04] MEDS: PANTOPRAZOLE 40MG INJ (PROTONIX) (C9113) IV SCH ×2 (09:00→20:18)
[2018-07-04 12:33] LABS: BASO % 0.1 % (0.0-1.0); HEMATOCRIT 34.5 % (36.0-47.0); HEMOGLOBIN 11.4 g/dl (12.0-15.5); LYMPH # 1.9 10^3/uL (1.5-6.5); LYMPH % 21.7 % (24.0-44.0); MEAN CORPUSCULAR VOLUME 81.6 fl (80.0-96.0); MONO # 0.4 10^3/uL (0.0-0.8); MONO % 5.1 % (0.0-5.0); NEUTROPHILS # 6.3 10^3/uL (1.8-7.7); NEUTROPHILS % 72.8 % (36.0-66.0); PLATELET COUNT, AUTOMATED 204 10^3/uL (150-450); RED BLOOD COUNT 4.23 10^6/uL (4.00-5.40); WHITE BLOOD COUNT 8.7 10^3/uL (4.0-10.0)
[2018-07-04 12:58] LABS: ALBUMIN 2.9 GM/DL (3.2-5.2); ALT/SGPT 42 U/L (12-78); BILIRUBIN,DIRECT 0.3 MG/DL (0.0-0.2); BILIRUBIN,TOTAL 0.5 MG/DL (0.2-1.0); BLOOD UREA NITROGEN 5 MG/DL (7-18); CREATININE FOR GFR 0.65 MG/DL (0.55-1.30); TOTAL PROTEIN 5.9 GM/DL (6.4-8.2)
--- NOTE | 2018-07-04 13:17 | IPNPDOC ---
Subjective General Date/Time Seen The patient was seen on 07/04/18 at 12:55. Subject Chief Complaint/History The patient is a 22-year-old female admitted with a reason for visit of Cholelithiasis W Choledocholithiasis. 22 yo female with no PMH presented with abdominal with nausea and vomiting as well as elevated direct bili and total bili as well as AST was found to have cholelithiasis and choledocholithiasis shown in MRCP. It was noted that patient has been having intermittent RUQ abdominal pain since giving to her child and was scheduled to see surgeon in the office. Prior to the appt was made, patient presented at [facility] ER d/t increase of intensity of pain. Patient was admitted to hospitalist team with GI and surgery team being consulted. Pt underwent ERCP by Dr. Lott yesterday and choledocholithiasis was removed. Patient reported that she has mild epigastric and right upper quadrant abdominal pain. Has been tolerating clear liquid diet well with no nausea. Current Medications Current Medications Current Medications Acetaminophen (Tylenol Tab) 650 mg Q4HP PRN PO MILD PAIN OR FEVER; Start 07/02/18 at 22:30 Fentanyl Citrate (Sublimaze) 25 mcg Q5MP PRN IV MODERATE PAIN (PS 4-7); Start 07/03/18 at 16:15; Stop 07/03/18 at 17:15; Status DC Home Med (Med Rec Complete!) ASDIRECTED XX ; Start 07/02/18 at 18:30; Stop 07/02/18 at 18:30; Status DC Hydromorphone HCl (Dilaudid) 0.2 mg Q5MP PRN IV MODERATE/SEVERE PAIN (PS 5-10); Start 07/03/18 at 16:15; Stop 07/03/18 at 17:15; Status DC Lactated Ringer's 1,000 ml @ 100 mls/hr Q10H IV ; Start 07/03/18 at 16:15; Stop 07/03/18 at 16:54; Status DC Lactated Ringer's 1,000 ml @ 250 mls/hr Q4H IV Last administered on 07/04/18at 07:00; Start 07/03/18 at 17:00; Stop 07/04/18 at 10:12; Status DC Morphine Sulfate (Morphine Sulfate Inj) 2 mg Q6HP PRN IV SEVERE PAIN (PS 8-10) Last administered on 07/04/18at 12:49; Start 07/02/18 at 22:30 Morphine Sulfate (Morphine Sulfate Inj) 4 mg Q15MP PRN IV SEVERE PAIN (PS 8-10) Last administered on 07/02/18at 17:08; Start 07/02/18 at 16:00; Stop 07/02/18 at 17:09; Status DC Ondansetron HCl (ZOFRAN INJection) 4 mg Q4HP PRN IV NAUSEA OR VOMITING; Start 07/03/18 at 16:15; Stop 07/03/18 at 17:15; Status DC Oxycodone/ Acetaminophen (Percocet 5mg/ 325mg Tablet) 1 tab ASDIRECTED PRN PO MILD/MODERATE PAIN (PS 1-7); Start 07/03/18 at 16:15; Stop 07/03/18 at 17:15; Status DC Oxycodone/ Acetaminophen (Percocet 5mg/ 325mg Tablet) 1 tab Q4HP PRN PO MODERATE PAIN (PS 5-7) Last administered on 07/04/18at 10:40; Start 07/02/18 at 22:30 Pantoprazole Sodium (Protonix) 40 mg DAILY PO Last administered on 07/03/18at 08:36; Start 07/03/18 at 09:00; Stop 07/03/18 at 17:04; Status DC Pantoprazole Sodium (Protonix) 40 mg Q12H IV Last administered on 07/04/18at 09:00; Start 07/03/18 at 21:00 Sodium Chloride 1,000 ml @ 125 mls/hr Q8H IV Last administered on 07/03/18at 07:55; Start 07/02/18 at 22:24; Stop 07/03/18 at 16:54; Status DC Allergies Coded Allergies: SEASONAL ALLERGIES (Verified Allergy, Mild, 03/15/18) Objective Physical Examination Examination GENERAL APPEARANCE:[Patient seen, laying in bed, awake, alert, and oriented. Comfortable, in no acute distress]. SKIN: [Warm and moist]. HEENT: [Normocephalic, atraumatic. [place] palpebral conjunctiva, anicteric sclerae. Lips and mucosa appear moist]. NECK: [Supple. No obvious jugular venous distention]. LUNGS: [Clear to auscultation bilaterally. No wheezing appreciated]. HEART: [No chest wall abnormalities. Regular rate and rhythm with no murmurs appreciated]. ABDOMEN: Abdomen is, soft, non-distended. No noticeable guarding. Bowel sound aus in all 4 quadrants. EXTREMITIES: [Extremities have no deformities. No edema identified. No calf tenderness upon palpation b/l]. Vital Signs Vital Signs Date Time Temp Pulse Resp B/P (MAP) Pulse Ox O2 Delivery O2 Flow Rate FiO2 07/04/18 12:49 16 07/04/18 08:10 98.1 64 115/68 (84) 98 07/02/18 22:28 Room Air I&Os I&O- Last 24 Hours up to 6 AM 07/04/18 06:00 Intake Total 5735 ml Output Total 3250 ml Balance 2485 ml Laboratory Data Labs 24H Laboratory Tests 2 07/03/18 18:25: Immature Granulocyte % (Auto) 0.3, White Blood Count 6.3, Red Blood Count 4.76, Hemoglobin 12.7, Hematocrit 39.6, Mean Corpuscular Volume 83.2, Mean Corpuscular Hemoglobin 26.7L, Mean Corpuscular Hemoglobin Concent 32.1, Red Cell Distribution Width 13.6, Platelet Count 190, Neutrophils (%) (Auto) 87.2H, Lymphocytes (%) (Auto) 11.4L, Monocytes (%) (Auto) 0.8, Eosinophils (%) (Auto) 0.0, Basophils (%) (Auto) 0.3, Neutrophils # (Auto) 5.5, Lymphocytes # (Auto) 0.7L, Monocytes # (Auto) 0.1, Eosinophils # (Auto) 0.0, Basophils # (Auto) 0.0, Nucleated Red Blood Cells % (auto) 0.0, Aspartate Amino Transf (AST/SGOT) 47H, Alanine Aminotransferase (ALT/SGPT) 60, Alkaline Phosphatase 69, Total Bilirubin 1.0, Direct Bilirubin 0.5H, Total Protein 6.9, Albumin 3.4, Albumin/Globulin Ratio 0.97L 07/03/18 23:58: Immature Granulocyte % (Auto) 0.3, White Blood Count 3.9L, Red Blood Count 4.52, Hemoglobin 12.1, Hematocrit 37.0, Mean Corpuscular Volume 81.9, Mean Corpuscular Hemoglobin 26.8L, Mean Corpuscular Hemoglobin Concent 32.7, Red Cell Distribution Width 13.7, Platelet Count 214, Neutrophils (%) (Auto) 81.0H, Lymphocytes (%) (Auto) 17.7L, Monocytes (%) (Auto) 1.0, Eosinophils (%) (Auto) 0.0, Basophils (%) (Auto) 0.0, Neutrophils # (Auto) 3.1, Lymphocytes # (Auto) 0.7L, Monocytes # (Auto) 0.0, Eosinophils # (Auto) 0.0, Basophils # (Auto) 0.0, Nucleated Red Blood Cells % (auto) 0.0, Aspartate Amino Transf (AST/SGOT) 40H, Alanine Aminotransferase (ALT/SGPT) 57, Alkaline Phosphatase 66, Total Bilirubin 0.8, Direct Bilirubin 0.4H, Total Protein 7.0, Albumin 3.4, Albumin/Globulin Ratio 0.94L 07/04/18 07:30: Immature Granulocyte % (Auto) 0.4, White Blood Count 8.4, Red Blood Count 4.47, Hemoglobin 12.0, Hematocrit 36.5, Mean Corpuscular Volume 81.7, Mean Corpuscular Hemoglobin 26.8L, Mean Corpuscular Hemoglobin Concent 32.9, Red Cell Di stribution Width 13.7, Platelet Count 215, Neutrophils (%) (Auto) 77.4H, Lymphocytes (%) (Auto) 17.1L, Monocytes (%) (Auto) 5.0, Eosinophils (%) (Auto) 0.0, Basophils (%) (Auto) 0.1, Neutrophils # (Auto) 6.5, Lymphocytes # (Auto) 1.4L, Monocytes # (Auto) 0.4, Eosinophils # (Auto) 0.0, Basophils # (Auto) 0.0, Nucleated Red Blood Cells % (auto) 0.0, Aspartate Amino Transf (AST/SGOT) 31, Alanine Aminotransferase (ALT/SGPT) 46, Alkaline Phosphatase 59, Total Bilirubin 0.5, Direct Bilirubin 0.3H, Total Protein 6.1L, Albumin 3.0L, Albumin/Globulin Ratio 0.97L, Anion Gap 9, Blood Urea Nitrogen 6L, Creatinine 0.70, Sodium Level 142, Potassium Level 4.0, Chloride Level 109H, Carbon Dioxide Level 24, Calcium Level 8.3L 07/04/18 12:00: Immature Granulocyte % (Auto) 0.3, White Blood Count 8.7, Red Blood Count 4.23, Hemoglobin 11.4L, Hematocrit 34.5L, Mean Corpuscular Volume 81.6, Mean Corpuscular Hemoglobin 27.0, Mean Corpuscular Hemoglobin Concent 33.0, Red Cell Distribution Width 13.9, Platelet Count 204, Neutrophils (%) (Auto) 72.8H, Lymphocytes (%) (Auto) 21.7L, Monocytes (%) (Auto) 5.1H, Eosinophils (%) (Auto) 0.0, Basophils (%) (Auto) 0.1, Neutrophils # (Auto) 6.3, Lymphocytes # (Auto) 1.9, Monocytes # (Auto) 0.4, Eosinophils # (Auto) 0.0, Basophils # (Auto) 0.0, N ucleated Red Blood Cells % (auto) 0.0 CBC/BMP Laboratory Tests 07/03/18 18:25 Red Blood Count 4.76, Mean Corpuscular Volume 83.2, Mean Corpuscular Hemoglobin 26.7 L, Mean Corpuscular Hemoglobin Concent 32.1, Red Cell Distribution Width 13.6, Neutrophils (%) (Auto) 87.2 H, Lymphocytes (%) (Auto) 11.4 L, Monocytes (%) (Auto) 0.8, Eosinophils (%) (Auto) 0.0, Basophils (%) (Auto) 0.3, Neutrophils # (Auto) 5.5, Lymphocytes # (Auto) 0.7 L, Monocytes # (Auto) 0.1, Eosinophils # (Auto) 0.0, Basophils # (Auto) 0.0 07/03/18 23:58 Red Blood Count 4.52, Mean Corpuscular Volume 81.9, Mean Corpuscular Hemoglobin 26.8 L, Mean Corpuscular Hemoglobin Concent 32.7, Red Cell Distribution Width 13.7, Neutrophils (%) (Auto) 81.0 H, Lymphocytes (%) (Auto) 17.7 L, Monocytes (%) (Auto) 1.0, Eosinophils (%) (Auto) 0.0, Basophils (%) (Auto) 0.0, Neutrophils # (Auto) 3.1, Lymphocytes # (Auto) 0.7 L, Monocytes # (Auto) 0.0, Eosinophils # (Auto) 0.0, Basophils # (Auto) 0.0 07/04/18 07:30 Red Blood Count 4.47, Mean Corpuscular Volume 81.7, Mean Corpuscular Hemoglobin 26.8 L, Mean Corpuscular Hemoglobin Concent 32.9, Red Cell Distribution Width 13.7, Neutrophils (%) (Auto) 77.4 H, Lymphocytes (%) (Auto) 17.1 L, Monocytes (%) (Auto) 5.0, Eosinophils (%) (Auto) 0.0, Basophils (%) (Auto) 0.1, Neutrophils # (Auto) 6.5, Lymphocytes # (Auto) 1.4 L, Monocytes # (Auto) 0.4, Eosinophils # (Auto) 0.0, Basophils # (Auto) 0.0, Calcium Level 8.3 L, Aspartate Amino Transf (AST/SGOT) 31, Alanine Aminotransferase (ALT/SGPT) 46, Alkaline Phosphatase 59, Total Bilirubin 0.5, Direct Bilirubin 0.3 H, Total Protein 6.1 L, Albumin 3.0 L 07/04/18 12:00 Red Blood Count 4.23, Mean Corpuscular Volume 81.6, Mean Corpuscular Hemoglobin 27.0, Mean Corpuscular Hemoglobin Concent 33.0, Red Cell Distribution Width 13.9, Neutrophils (%) (Auto) 72.8 H, Lymphocytes (%) (Auto) 21.7 L, Monocytes (%) (Auto) 5.1 H, Eosinophils (%) (Auto) 0.0, Basophils (%) (Auto) 0.1, Neutrophils # (Auto) 6.3, Lymphocytes # (Auto) 1.9, Monocytes # (Auto) 0.4, Eosinophils # (Auto) 0.0, Basophils # (Auto) 0.0 Impression Choledocolithiasis and cholelithiasis. S/p ERCP. Entire main bile duct was dilated with stone causing obstruction. Choledocolithiasis removed with biliary sphincterotomy performed. Patient has mild abdominal pain in RUQ and epigastric area only. No obvious jaundice or scleral icterus. Patient is tolerating PO clear liquid diet well without nausea; was advanced to regular diet today. Patient afebrile without leukocytosis. Elevated AST resolved. On pain control regimen. Patient will follow up with Dr. Arredondo as an outpatient scheduled for interval cholecystectomy. Plan / VTE VTE Prophylaxis Ordered?: Yes (SCD and TEDS) FAIZA SALAS DO Jul 04, 2018 13:17
[2018-07-04] MEDS ORDERED: NS 1,000 ML IV SCH (16:00)
[2018-07-04] MEDS ORDERED: ISOVUE-370 76% 100ML VIAL (Q9967) As Ordered ONE (16:04)
[2018-07-04] MEDS: ONDANSETRON 4MG/2ML VIAL (J2405) IV PRN ×2 (16:47→22:30)
[2018-07-04 16:49] LABS: ALBUMIN 3.4 GM/DL (3.2-5.2); BILIRUBIN,DIRECT 0.3 MG/DL (0.0-0.2); BILIRUBIN,TOTAL 0.5 MG/DL (0.2-1.0); LIPASE 4167 U/L (73-393); TOTAL PROTEIN 6.5 GM/DL (6.4-8.2)
--- NOTE | 2018-07-04 16:50 | REP ---
CT abdomen, pelvis not included, with IV contrast, without bowel contrast: The patient is status post ERCP. There are no comparison studies. The visualized lung gray are unremarkable. There is pneumobilia. The hepatic parenchyma is otherwise homogeneous. There is a gallbladder calculus in the gallbladder fundus. There is free fluid along the medial border of the liver, in the eayl hepatis, along the margin of the pancreas and extending to the left to the lower pole of the spleen and along the anterior margin of the left kidney upper pole. This may represent a bile leak. There is no pneumoperitoneum. The pancreas, spleen, adrenals and kidneys are unremarkable. Abdominal aorta is unremarkable. Visualized bowel is unremarkable. Impression: There is free fluid in the upper abdomen extending from the eyal hepatis across the midline to the spleen and across the anterior margin of the upper pole of the left kidney, possibly a bile leak. No pneumoperitoneum. There is a gallbladder calculus. There is pneumobilia. No pneumoperitoneum. Electronically Signed by Horace Bermudez MD 07/04/2018 04:41 P
[2018-07-04 17:37] LABS: ALBUMIN 3.2 GM/DL (3.2-5.2); BLOOD UREA NITROGEN 7 MG/DL (7-18); CALCIUM LEVEL 8.7 MG/DL (8.5-10.1); CARBON DIOXIDE LEVEL 24 MEQ/L (21-32); CHLORIDE LEVEL 108 MEQ/L (98-107); CREATININE FOR GFR 0.76 MG/DL (0.55-1.30); GLUCOSE, FASTING 91 MG/DL (70-100); PHOSPHORUS LEVEL 1.8 MG/DL (2.5-4.9); POTASSIUM SERUM 3.3 MEQ/L (3.5-5.1); SODIUM LEVEL 142 MEQ/L (136-145)
--- NOTE | 2018-07-04 17:54 | IPN ---
DATE: 07/04/2018 Patient examined at bedside. She is status post endoscopic retrograde cholangiopancreatography (ERCP) with Dr. Lott yesterday. A stone was found in the common bile duct, obstructing and causing dilation of 12 mm. She underwent a sphincterotomy with stone removal and balloon extraction. As of this morning she is feeling well, tolerating her clear liquids, and diet was advanced to a regular diet for lunch; however, afterward she started experiencing nausea and severe abdominal pain. She underwent a CT scan, revealing possible biliary leak, and lipase is elevated at 4000. She is made back nothing by mouth and on intravenous (IV) fluids with pain control. Concern for biliary leak versus post ERCP pancreatitis. PHYSICAL EXAMINATION: VITAL SIGNS: Temperature 98.1, pulse 64, respirations 20, blood pressure (BP) 115/68, mean arterial pressure (MAP) of 84, saturating 98% on room air. GENERAL: Was initially resting comfortably in bed. No acute distress. Upon re-examination, she is now visibly distressed due to her abdominal pain. Continues to be alert and oriented times three and fully conversant. HEENT: Normocephalic, atraumatic. Extraocular muscles intact (EOMI). Moist mucous membranes. The neck is supple. Anicteric sclerae. CARDIAC: Regular rate and rhythm. No murmur, clicks, gallops. LUNGS: Clear bilaterally without any wheezing, rhonchi, or rales. ABDOMEN: Nondistended. She is guarding given her severe abdominal pain. Tenderness to palpation throughout, however, mostly in the midepigastric region and right upper quadrant. Abdomen overall is soft, nondistended. Some positive rebound. Normoactive bowel sounds throughout. EXTREMITIES: No edema. Radial pulses 2+ bilaterally. SKIN: With no visible rashes or lesions. LABORATORY DATA: WBC 8.7, hemoglobin and hematocrit 11.4/34.5, platelets 204. Sodium 142, potassium 4, BUN and creatinine 6 and 0.7. Liver profile is improved and normal. Lipase 4167. IMAGING: A CT of the abdomen reveals free fluid in the upper abdomen, extending from the eyal hepatic across the midline to the spleen and across the anterior margin of the upper pole of the left kidney, possible bile leak. No pneumoperitoneum. There is gallbladder calculi. There is pneumobilia. ASSESSMENT AND PLAN: 1. Post ERCP pancreatitis with possible biliary leak. She is status post ERCP yesterday with initially improving; however, started to experience severe abdominal pain after lunch today. Lipase is elevated in the 4000s, and she is having significant abdominal pain, although imaging does not reveal any inflamed pancreas. We will continue her on lactate Ringer's at a rate of 250, aggressively hydrate, and pain control. Dr. Lott is following. He plans to speak to interventional radiology (IR) regarding the imaging and possibly placement of a drain if there is, indeed, a biliary leak. Will await his input, as he plans on speaking with surgery as well if surgical intervention is needed. Continue nothing by mouth and closely monitor and repeat complete blood count (CBC) and comprehensive metabolic panel (CMP) every 6 hours. 2. Cholelithiasis with choledocholithiasis. Ms. Tran underwent ERCP yesterday with an obstructing common bile duct stone removal and extraction. Her liver panel appears to have improved after the procedure. Continue plans as above regarding her choledocholithiasis. Surgery would like to followup outpatient for elective cholecystectomy. Surgery has signed off on the patient; however, consider re-consulting given acute change today. 3. Deep vein thrombosis (DVT) prophylaxis. Thromboembolic deterrents (TEDs) and sequential compression devices (SCDs). DISPOSITION: Pending clinical improvement and gastrointestinal (GI) and surgical assessment, possible drainage placement. My faculty preceptor for this patient encounter was physically present during the encounter and was fully available. All aspects of the patient interview, examination, medical decision making process, and medical care plan development were reviewed and approved by the faculty preceptor. The faculty preceptor is aware and concurs with the plan as stated in the body of this note and will attest to such by his/her co-signature.
--- NOTE | 2018-07-04 18:44 | IPNPDOC ---
Date Seen The patient was seen on 07/04/18. Progress Note Interval history: Patient was feeling better until today afternoon, after which her diet was advanced to regular diet and then she complained of severe abdominal pain. Patient upon further questioning she reported that she did have abdominal pain at night when she woke up and later upon receiving pain medication it resolved. Patient reports the pain is locate din epigastric abdominal area which gets wors e on lying on back and associated with nausea. Patient denies any fever and chills. Patient did report passing gas but did not have any bowel movement. Patient underwent urgent CT abdomen -( images reviewed -- shows possible pancreatitis) but is reported as bile leak. Exam: Vitals: no tachycardia, No fever, no tachypnea. Abdomen: non distended, soft, with tenderness in epigastric and right upper quadrant area, sluggish bowel sounds. Labs: Reviewed. Elevated Lipase. Normal Liver panel, Normal WBC. Imaging: CT abdomen--Reviewed the images with concreter surgeon -- noted pancreatitis with suspected peripancreatic fluid accumulation, no evidence of free air. ( CT report is read as bile leak with normal pancreas -- called the radiology to review, awaiting call back). Impression: -- Choledocholithiasis -- s/p ERCP with sphincterotomy and removal of stone by balloon sweep. -- Acute epigastric abdominal pain on post OP day 1 with elevated lipase and abnormal CT scan --Likely post ERCP pancreatitis. Less likely Bile leak due to no free air in CT abdomen ( reviewed with surgeon - Dr. morales). Recommendations: -- NPO -- IV fluids -- keep on ringers lactate at 3-5 ml KG for 12 hours and then titrate based on the fluid status. -- ICU monitoring for now. -- Continuous pulse oximetry -- Pain management as per primary team, please consider IV morphine 2 mg, as needed based on the pain scale - moderate to severe pain. -- If any signs of fever or worsening WBC, then will consider IV antibiotics. -- Repeat interval imaging -- MRI and MRCP depending on clinical course tomorrow or on Friday. -- Patient, her parents (who live in [place]) were all explained about the test results, possible diagnosis and all questions were answered. -- As per patient request it is okay to discuss the patients health condition with her parents. Plan of care discussed with patient and primary team. Patient verbalized understanding and agreed with the plan. CASH FOLEY MD Jul 04, 2018 18:44
[2018-07-04] MEDS ORDERED: MEPERIDINE INJ 25 MG/ML VIAL (J2175) IM PRN (19:00)
[2018-07-04 21:02] LABS: BASO % 0.2 % (0.0-1.0); HEMATOCRIT 34.3 % (36.0-47.0); HEMOGLOBIN 11.5 g/dl (12.0-15.5); LYMPH # 1.5 10^3/uL (1.5-6.5); LYMPH % 11.9 % (24.0-44.0); MEAN CORPUSCULAR HEMOGLOBIN 27.4 pg (27.0-33.0); MEAN CORPUSCULAR HGB CONC 33.5 g/dl (32.0-36.5); MEAN CORPUSCULAR VOLUME 81.7 fl (80.0-96.0); MONO # 0.7 10^3/uL (0.0-0.8); MONO % 5.3 % (0.0-5.0); NEUTROPHILS # 10.2 10^3/uL (1.8-7.7); NEUTROPHILS % 82.4 % (36.0-66.0); PLATELET COUNT, AUTOMATED 196 10^3/uL (150-450); WHITE BLOOD COUNT 12.3 10^3/uL (4.0-10.0)
[2018-07-04 21:19] LABS: ALBUMIN 2.9 GM/DL (3.2-5.2); ALT/SGPT 38 U/L (12-78); BILIRUBIN,TOTAL 0.4 MG/DL (0.2-1.0); BLOOD UREA NITROGEN 6 MG/DL (7-18); CALCIUM LEVEL 8.1 MG/DL (8.5-10.1); CARBON DIOXIDE LEVEL 24 MEQ/L (21-32); CHLORIDE LEVEL 107 MEQ/L (98-107); CREATININE FOR GFR 0.62 MG/DL (0.55-1.30); GLUCOSE, FASTING 90 MG/DL (70-100); POTASSIUM SERUM 3.1 MEQ/L (3.5-5.1); SODIUM LEVEL 142 MEQ/L (136-145); TOTAL PROTEIN 6.3 GM/DL (6.4-8.2)
[2018-07-04] MEDS ORDERED: KCL 20MEQ IN 100ML SWI (KRUN) 20 MEQ in APPROPRIATE DILUENT 1 EA IV ONE ×2 (22:00)
[2018-07-04 22:37] LABS: MAGNESIUM LEVEL 1.4 MG/DL (1.8-2.4)
[2018-07-04] MEDS: MAG SULF 1GM/100ML (MAG RUN) 1 GM in APPROPRIATE DILUENT 1 EA IV ONE ×3 (23:00)
[2018-07-05] VITALS (7 sets, daily range): BP systolic 117–138; BP diastolic 64–76
[2018-07-05] MEDS: KCL 10MEQ/100ML SWI (KRUN) 10 MEQ in APPROPRIATE DILUENT 1 EA IV SCH ×2
[2018-07-05] MEDS: MORPHINE 4 MG/ML 1ML VIAL/SYRINGE (J2270) IV PRN ×2 (01:50→10:06)
[2018-07-05 03:30] LABS: BASO % 0.1 % (0.0-1.0); EOS % 0.1 % (0.0-3.0); HEMOGLOBIN 11.2 g/dl (12.0-15.5); LYMPH # 1.6 10^3/uL (1.5-6.5); LYMPH % 16.9 % (24.0-44.0); MEAN CORPUSCULAR HEMOGLOBIN 27.1 pg (27.0-33.0); MEAN CORPUSCULAR HGB CONC 32.9 g/dl (32.0-36.5); MEAN CORPUSCULAR VOLUME 82.3 fl (80.0-96.0); MONO # 0.5 10^3/uL (0.0-0.8); MONO % 5.1 % (0.0-5.0); NEUTROPHILS # 7.2 10^3/uL (1.8-7.7); NEUTROPHILS % 77.7 % (36.0-66.0); PLATELET COUNT, AUTOMATED 182 10^3/uL (150-450); RED BLOOD COUNT 4.13 10^6/uL (4.00-5.40); WHITE BLOOD COUNT 9.2 10^3/uL (4.0-10.0)
[2018-07-05 03:45] LABS: ALBUMIN 2.9 GM/DL (3.2-5.2); ALT/SGPT 36 U/L (12-78); BILIRUBIN,TOTAL 0.4 MG/DL (0.2-1.0); BLOOD UREA NITROGEN 4 MG/DL (7-18); CALCIUM LEVEL 8.1 MG/DL (8.5-10.1); CARBON DIOXIDE LEVEL 26 MEQ/L (21-32); CHLORIDE LEVEL 105 MEQ/L (98-107); CREATININE FOR GFR 0.58 MG/DL (0.55-1.30); GLUCOSE, FASTING 94 MG/DL (70-100); POTASSIUM SERUM 3.7 MEQ/L (3.5-5.1); SODIUM LEVEL 140 MEQ/L (136-145); TOTAL PROTEIN 5.8 GM/DL (6.4-8.2)
[2018-07-05] MEDS: LR 1,000 ML IV SCH ×3 (04:40→18:34)
[2018-07-05] MEDS: PANTOPRAZOLE 40MG INJ (PROTONIX) (C9113) IV SCH ×2 (08:34→20:36)
[2018-07-05 08:35] LABS: LIPASE 2029 U/L (73-393)
[2018-07-05] MEDS ORDERED: MIRALAX *UNIT DOSE* 17GM PACKET PO SCH (09:00)
[2018-07-05 09:37] LABS: BASO % 0.1 % (0.0-1.0); EOS % 0.1 % (0.0-3.0); HEMATOCRIT 35.6 % (36.0-47.0); HEMOGLOBIN 11.7 g/dl (12.0-15.5); LYMPH # 1.7 10^3/uL (1.5-6.5); LYMPH % 17.4 % (24.0-44.0); MEAN CORPUSCULAR HEMOGLOBIN 26.8 pg (27.0-33.0); MEAN CORPUSCULAR HGB CONC 32.9 g/dl (32.0-36.5); MEAN CORPUSCULAR VOLUME 81.7 fl (80.0-96.0); MONO # 0.6 10^3/uL (0.0-0.8); MONO % 6.4 % (0.0-5.0); NEUTROPHILS # 7.5 10^3/uL (1.8-7.7); NEUTROPHILS % 75.7 % (36.0-66.0); PLATELET COUNT, AUTOMATED 191 10^3/uL (150-450); RED BLOOD COUNT 4.36 10^6/uL (4.00-5.40); WHITE BLOOD COUNT 9.9 10^3/uL (4.0-10.0)
[2018-07-05 10:10] LABS: ALT/SGPT 37 U/L (12-78); BILIRUBIN,TOTAL 0.7 MG/DL (0.2-1.0); BLOOD UREA NITROGEN 3 MG/DL (7-18); CALCIUM LEVEL 8.6 MG/DL (8.5-10.1); CARBON DIOXIDE LEVEL 24 MEQ/L (21-32); CHLORIDE LEVEL 105 MEQ/L (98-107); CREATININE FOR GFR 0.59 MG/DL (0.55-1.30); GLUCOSE, FASTING 79 MG/DL (70-100); POTASSIUM SERUM 3.8 MEQ/L (3.5-5.1); SODIUM LEVEL 138 MEQ/L (136-145); TOTAL PROTEIN 6.7 GM/DL (6.4-8.2)
--- NOTE | 2018-07-05 11:46 | IPNPDOC ---
Subjective Date Seen The patient was seen on 07/05/18. Subjective Chief Complaint/HPI Patient seen and examined at the bedside. She reports that her abdominal pain has improved overall. She remained afebrile, with a normal white blood cell count, and hemodynamically stable overnight. Her lipase level has down trended. We will follow-up with GI/general surgery prior to advancing her diet. Objective Physical Examination General Exam: Positive: Alert, Cooperative, No Acute Distress ENT Exam: Positive: Atraumatic, Mucous membr. moist/pink Neck Exam: Negative: JVD Chest Exam: Positive: Clear to auscultation, Normal air movement Heart Exam: Positive: Rate Normal, Normal S1, Normal S2 Abdomen Exam: Positive: Soft, Tenderness (mild tenderness to deep palpation in the supraumbilical/epigastric area. No rebound tenderness, guarding, or rigidity noted.) Extremity Exam: Negative: Tenderness, Swelling Psych Exam: Positive: Oriented x 3 Assessment /Plan Plan/VTE VTE Prophylaxis Ordered?: Yes (SCD and TEDS) Plan Abdominal Pain likely 2/2 Post ERCP Pancreatitis, Less Likely Biliary Leak. She is status post ERCP on 07/03, with development of Pancreatitis on 07/[address] Abd/pel on 07/04/18 notable for pancreatitis vs biliary leak--imaging reviewed with GI and Gen Surg--and given the lack of pneumoperitoneum/free air, area of inflammation/fluid in relativity to the pancreas, biliary leak is less likely. This morning the patient states that she is feeling better, and notes that her abdominal pain is improved overall. She has remained afebrile, with a normal white blood cell count, and hemodynamically stable. Continue IV fluid hydration and keep nothing by mouth We will await GI/general surgery input prior to advancing the patient's diet. Choledocholithiasis s/p ERCP on 07/03 Obstructing common bile duct stone removal and extraction performed LFTs within normal limits at this time Cholelithiasis Surgery on board--plans to follow-up with general surgery as an outpatient for interval cholecystectomy Deep vein thrombosis (DVT) prophylaxis Thromboembolic deterrents (TEDs) and sequential compression devices (SCDs) VS, I&O, 24H, Fishbone Vital Signs/I&O Vital Signs Date Time Temp Pulse Resp B/P (MAP) Pulse Ox O2 Delivery O2 Flow Rate FiO2 07/05/18 10:16 16 07/05/18 08:00 98.7 90 117/64 (81) 99 07/02/18 22:28 Room Air I&O- Last 24 Hours up to 6 AM 07/05/18 05:59 Intake Total 4545 ml Output Total 3950 ml Balance 595 ml Laboratory Data 24H LABS Laboratory Tests 2 07/04/18 12:00: Immature Granulocyte % (Auto) 0.3, White Blood Count 8.7, Red Blood Count 4.23, Hemoglobin 11.4L, Hematocrit 34.5L, Mean Corpuscular Volume 81.6, Mean Corpuscular Hemoglobin 27.0, Mean Corpuscular Hemoglobin Concent 33.0, Red Cell Distribution Width 13.9, Platelet Count 204, Neutrophils (%) (Auto) 72.8H, Lymphocytes (%) (Auto) 21.7L, Monocytes (%) (Auto) 5.1H, Eosinophils (%) (Auto) 0.0, Basophils (%) (Auto) 0.1, Neutrophils # (Auto) 6.3, Lymphocytes # (Auto) 1.9, Monocytes # (Auto) 0.4, Eosinophils # (Auto) 0.0, Basophils # (Auto) 0.0, Nucleated Red Blood Cells % (auto) 0.0, Aspartate Amino Transf (AST/SGOT) 26, Alanine Aminotransferase (ALT/SGPT) 42, Alkaline Phosphatase 56, Total Bilirubin 0.5, Direct Bilirubin 0.3H, Total Protein 5.9L, Albumin 2.9L, Albumin/Globulin R atio 0.97L 07/04/18 15:48: Aspartate Amino Transf (AST/SGOT) 29, Alanine Aminotransferase (ALT/SGPT) 45, Alkaline Phosphatase 57, Total Bilirubin 0.5, Direct Bilirubin 0.3H, Total Protein 6.5, Albumin 3.4, Albumin/Globulin Ratio 1.10, Blood Urea Nitrogen 7, Creatinine 0.76, Sodium Level 142, Potassium Level 3.3L, Chloride Level 108H, Carbon Dioxide Level 24, Anion Gap 10, Calcium Level 8.7, Phosphorus Level 1.8L, Lipase 4167H 07/04/18 20:46: Immature Granulocyte % (Auto) 0.2, White Blood Count 12.3H, Red Blood Count 4.20, Hemoglobin 11.5L, Hematocrit 34.3L, Mean Corpuscular Volume 81.7, Mean Corpuscular Hemoglobin 27.4, Mean Corpuscular Hemoglobin Concent 33.5, Red Cell Distribution Width 14.0, Platelet Count 196, Neutrophils (%) (Auto) 82.4H, Lymp hocytes (%) (Auto) 11.9L, Monocytes (%) (Auto) 5.3H, Eosinophils (%) (Auto) 0.0, Basophils (%) (Auto) 0.2, Neutrophils # (Auto) 10.2H, Lymphocytes # (Auto) 1.5, Monocytes # (Auto) 0.7, Eosinophils # (Auto) 0.0, Basophils # (Auto) 0.0, Nucleated Red Blood Cells % (auto) 0.0, Aspartate Amino Transf (AST/SGOT) 24, Alanine Aminotransferase (ALT/SGPT) 38, Alkaline Phosphatase 51, Total Bilirubin 0.4, Total Protein 6.3L, Albumin 2.9L, Albumin/Globulin Ratio 0.85L, Blood Urea Nitrogen 6L, Creatinine 0.62, Sodium Level 142, Potassium Level 3.1L, Chloride Level 107, Carbon Dioxide Level 24, Anion Gap 11, Calcium Level 8.1L, Magnesium Level 1.4L 07/05/18 03:11: Immature Granulocyte % (Auto) 0.1, White Blood Count 9.2, Red Blood Count 4.13, Hemoglobin 11.2L, Hematocrit 34.0L, Mean Corpuscular Volume 82.3, Mean Corpuscular Hemoglobin 27.1, Mean Corpuscular Hemoglobin Concent 32.9, Red Cell Distribution Width 14.1, Platelet Count 182, Neutrophils (%) (Auto) 77.7H, Lymphocytes (%) (Auto) 16.9L, Monocytes (%) (Auto) 5.1H, Eosinophils (%) (Auto) 0.1, Basophils (%) (Auto) 0.1, Neutrophils # (Auto) 7.2, Lymphocytes # (Auto) 1.6, Monocytes # (Auto) 0.5, Eosinophils # (Auto) 0.0, Basophils # (Auto) 0.0, Nucleated Red Blood Cells % (auto) 0.0, Aspartate Amino Transf (AST/SGOT) 22, Alanine Aminotransferase (ALT/SGPT) 36, Alkaline Phosphatase 48, Total Bilirubin 0.4, Total Protein 5.8L, Albumin 2.9L, Albumin/Globulin Ratio 1.00, Blood Urea Nitrogen 4L, Creatinine 0.58, Sodium Level 140, Potassium Level 3.7, Chloride Level 105, Carbon Dioxide Level 26, Anion Gap 9, Calcium Level 8.1L, Lipase 2029H, Magnesium Level 2.0 07/05/18 09:16: Immature Granulocyte % (Auto) 0.3, White Blood Count 9.9, Red Blood Count 4.36, Hemoglobin 11.7L, Hematocrit 35.6L, Mean Corpuscular Volume 81.7, Mean Corpuscular Hemoglobin 26.8L, Mean Corpuscular Hemoglobin Concent 32.9, Red Cell Distribution Width 14.2, Platelet Count 191, Neutrophils (%) (Auto) 75.7H, Lymphocytes (%) (Auto) 17.4L, Monocytes (%) (Auto) 6.4H, Eosinophils (%) (Auto) 0.1, Basophils (%) (Auto) 0.1, Neutrophils # (Auto) 7.5, Lymphocytes # (Auto) 1.7, Monocytes # (Auto) 0.6, Eosinophils # (Auto) 0.0, Basophils # (Auto) 0.0, Nucleated Red Blood Cells % (auto) 0.0, Anion Gap 9, Blood Urea Nitrogen 3L, Creatinine 0.59, Sodium Level 138, Potassium Level 3.8, Chloride Level 105, Carbon Dioxide Level 24, Calcium Level 8.6, Aspartate Amino Transf (AST/SGOT) 31, Alanine Aminotransferase (ALT/SGPT) 37, Alkaline Phosphatase 49, Total Bilirubin 0.7#, Total Protein 6.7, Albumin 3.0L, Albumin/Globulin Ratio 0.81L CBC/BMP Laboratory Tests 07/04/18 12:00 Red Blood Count 4.23, Mean Corpuscular Volume 81.6, Mean Corpuscular Hemoglobin 27.0, Mean Corpuscular Hemoglobin Concent 33.0, Red Cell Distribution Width 13.9, Neutrophils (%) (Auto) 72.8 H, Lymphocytes (%) (Auto) 21.7 L, Monocytes (%) (Auto) 5.1 H, Eosinophils (%) (Auto) 0.0, Basophils (%) (Auto) 0.1, Neutrophils # (Auto) 6.3, Lymphocytes # (Auto) 1.9, Monocytes # (Auto) 0.4, Eosinophils # (Auto) 0.0, Basophils # (Auto) 0.0 07/04/18 15:48 Anion Gap 10 07/04/18 20:46 Red Blood Count 4.20, Mean Corpuscular Volume 81.7, Mean Corpuscular Hemoglobin 27.4, Mean Corpuscular Hemoglobin Concent 33.5, Red Cell Distribution Width 14.0, Neutrophils (%) (Auto) 82.4 H, Lymphocytes (%) (Auto) 11.9 L, Monocytes (%) (Auto) 5.3 H, Eosinophils (%) (Auto) 0.0, Basophils (%) (Auto) 0.2, Neut rophils # (Auto) 10.2 H, Lymphocytes # (Auto) 1.5, Monocytes # (Auto) 0.7, Eosinophils # (Auto) 0.0, Basophils # (Auto) 0.0, Calcium Level 8.1 L, Aspartate Amino Transf (AST/SGOT) 24, Alanine Aminotransferase (ALT/SGPT) 38, Alkaline Phosphatase 51, Total Bilirubin 0.4, Total Protein 6.3 L, Albumin 2.9 L 07/05/18 03:11 Red Blood Count 4.13, Mean Corpuscular Volume 82.3, Mean Corpuscular Hemoglobin 27.1, Mean Corpuscular Hemoglobin Concent 32.9, Red Cell Distribution Width 1 4.1, Neutrophils (%) (Auto) 77.7 H, Lymphocytes (%) (Auto) 16.9 L, Monocytes (%) (Auto) 5.1 H, Eosinophils (%) (Auto) 0.1, Basophils (%) (Auto) 0.1, Neutrophils # (Auto) 7.2, Lymphocytes # (Auto) 1.6, Monocytes # (Auto) 0.5, Eosinophils # (Auto) 0.0, Basophils # (Auto) 0.0, Calcium Level 8.1 L, Aspartate Amino Transf (AST/SGOT) 22, Alanine Aminotransferase (ALT/SGPT) 36, Alkaline Phosphatase 48, Total Bilirubin 0.4, Total Protein 5.8 L, Albumin 2.9 L 07/05/18 09:16 Red Blood Count 4.36, Mean Corpuscular Volume 81.7, Mean Corpuscular Hemoglobin 26.8 L, Mean Corpuscular Hemoglobin Concent 32.9, Red Cell Distribution Width 14.2, Neutrophils (%) (Auto) 75.7 H, Lymphocytes (%) (Auto) 17.4 L, Monocytes (%) (Auto) 6.4 H, Eosinophils (%) (Auto) 0.1, Basophils (%) (Auto) 0.1, Neutrophils # (Auto) 7.5, Lymphocytes # (Auto) 1.7, Monocytes # (Auto) 0.6, Eosinophils # (Auto) 0.0, Basophils # (Auto) 0.0, Calcium Level 8.6, Aspartate Amino Transf (AST/SGOT) 31, Alanine Aminotransferase (ALT/SGPT) 37, Alkaline Phosphatase 49, Total Bilirubin 0.7 #, Total Protein 6.7, Albumin 3.0 L Microbiology Microbiology 07/05/18 Blood Culture, Received Pending CANDICE THAPA MD Jul 05, 2018 11:46
--- NOTE | 2018-07-05 14:05 | IPNPDOC ---
Date Seen The patient was seen on 07/05/18. Progress Note Interval history: Patient was transferred to ICU yesterday for close monitoring. Patient received ringers lactate drip over last 24 hours and had been NPO. Patient today reports passing gas but still did not have any bowel movement (Patient reports having chronic constipation even before hospitalization). Patient also reports her abdominal pain is better but still grades to 8-10 /10 when off pain medication. Patient had nausea and vomiting overnight but no further nausea, no more vomiting. Patient denies any appetite yet. Patient denies any fever and chills. Exam: Vitals: Pulse - 80 - 95, Afebrile, No tachypnea. Chest: bilateral clear air entry. NO crepitations . Abdomen: Soft, non-distended, moderate tenderness - localized to epigastric area, bowel sounds heard but slightly decreased. Labs: Reviewed. Imaging: CT abdomen--Reviewed the images with on radiologist. Impression likely pancreatitis. Impression: -- Choledocholithiasis -- s/p ERCP with sphincterotomy and removal of stone by balloon sweep. ( on 07/03/2018) -- Acute epigastric abdominal pain on post OP day 1 with elevated lipase and abnormal CT scan --Likely post ERCP pancreatitis. Less likely Bile leak due to no free air in CT abdomen ( reviewed with surgeon - Dr. Ugalde). -- Chronic constipation. Recommendations: -- Will continue IV fluids -- keep on ringers lactate at 150 cc/ hour drip and titrate based on the fluid status. -- As patient does not have appetite yet will keep her NPO for today with exception for ice chips and clear water by mouth. -- Continuous pulse oximetry. -- As patient has chronic constipation and receiving opioid pain medication, will start on Fleet enema daily and then start on miralax today evening or tomorrow daily. -- Pain management as per primary team. -- If any signs of fever or worsening WBC, then will consider IV antibiotics. -- Repeat interval imaging -- MRI and MRCP or HIDA scan depending on clinical co urse tomorrow. -- Patient, was explained about the test results and all questions were answered. -- Will consider down grading patient to step down unit after tolerating oral diet. -- DVT prophylaxis with SCDs. -- Ambulate as tolerated. Plan of care discussed with patient and primary team. Patient verbalized understanding and agreed with the plan. CASH FOLEY MD Jul 05, 2018 14:05
[2018-07-05] MEDS: FLEET ENEMA PR SCH (14:27)
[2018-07-05 15:13] LABS: BASO % 0.1 % (0.0-1.0); EOS % 0.1 % (0.0-3.0); HEMATOCRIT 36.9 % (36.0-47.0); LYMPH # 2.3 10^3/uL (1.5-6.5); LYMPH % 24.5 % (24.0-44.0); MEAN CORPUSCULAR HEMOGLOBIN 26.7 pg (27.0-33.0); MEAN CORPUSCULAR HGB CONC 32.5 g/dl (32.0-36.5); MEAN CORPUSCULAR VOLUME 82.2 fl (80.0-96.0); MONO # 0.6 10^3/uL (0.0-0.8); NEUTROPHILS # 6.6 10^3/uL (1.8-7.7); NEUTROPHILS % 69.1 % (36.0-66.0); PLATELET COUNT, AUTOMATED 217 10^3/uL (150-450); RED BLOOD COUNT 4.49 10^6/uL (4.00-5.40); WHITE BLOOD COUNT 9.5 10^3/uL (4.0-10.0)
[2018-07-05 15:44] LABS: ALBUMIN 3.2 GM/DL (3.2-5.2); ALT/SGPT 37 U/L (12-78); BILIRUBIN,TOTAL 0.7 MG/DL (0.2-1.0); BLOOD UREA NITROGEN 4 MG/DL (7-18); CALCIUM LEVEL 8.7 MG/DL (8.5-10.1); CARBON DIOXIDE LEVEL 23 MEQ/L (21-32); CHLORIDE LEVEL 104 MEQ/L (98-107); CREATININE FOR GFR 0.64 MG/DL (0.55-1.30); GLUCOSE, FASTING 67 MG/DL (70-100); POTASSIUM SERUM 3.5 MEQ/L (3.5-5.1); SODIUM LEVEL 138 MEQ/L (136-145); TOTAL PROTEIN 7.2 GM/DL (6.4-8.2)
--- NOTE | 2018-07-05 19:22 | IPNPDOC ---
Subjective General Date/Time Seen The patient was seen on 07/05/18 at 18:08. Subject Chief Complaint/History The patient is a 22-year-old female admitted with a reason for visit of Cholelithiasis W Choledocholithiasis. Patient apparently had exacerbation of her abdominal pain soon after she ate about noon time yesterday. She was found to have elevated lipase and repeat labs and subsequent CT scan of the abdomen and pelvis that was done shows pancreatitis. She was transferred to the ICU. This morning she reports her discomfort is much better. She denies any nausea, vomiting. She has been afebrile. She reports she is hungry. Current Medications Current Medications Current Medications Acetaminophen (Tylenol Tab) 650 mg Q4HP PRN PO MILD PAIN OR FEVER; Start 07/02/18 at 22:30 Fentanyl Citrate (Sublimaze) 25 mcg Q5MP PRN IV MODERATE PAIN (PS 4-7); Start 07/03/18 at 16:15; Stop 07/03/18 at 17:15; Status DC Home Med (Med Rec Complete!) ASDIRECTED XX ; Start 07/02/18 at 18:30; Stop 07/02/18 at 18:30; Status DC Hydromorphone HCl (Dilaudid) 0.2 mg Q5MP PRN IV MODERATE/SEVERE PAIN (PS 5-10); Start 07/03/18 at 16:15; Stop 07/03/18 at 17:15; Status DC Lactated Ringer's 1,000 ml @ 100 mls/hr Q10H IV ; Start 07/03/18 at 16:15; Stop 07/03/18 at 16:54; Status DC Lactated Ringer's 1,000 ml @ 150 mls/hr Q6H40M IV Last administered on 07/05/18at 08:34; Start 07/04/18 at 22:00 Lactated Ringer's 1,000 ml @ 250 mls/hr Q4H IV Last administered on 07/04/18at 07:00; Start 07/03/18 at 17:00; Stop 07/04/18 at 10:12; Status DC Lactated Ringer's 1,000 ml @ 250 mls/hr Q4H IV Last administered on 07/04/18at 17:37; Start 07/04/18 at 17:15; Stop 07/04/18 at 22:00; Status DC Meperidine HCl (Demerol) 25 mg Q6HP PRN IM BREAKTHROUGH PAIN Last administered on 07/04/18at 22:20; Start 07/04/18 at 19:00 Morphine Sulfate (Morphine Sulfate Inj) 2 mg Q6HP PRN IV SEVERE PAIN (PS 8-10) Last administered on 07/04/18at 17:30; Start 07/02/18 at 22:30; Stop 07/04/18 at 18:50; Status DC Morphine Sulfate (Morphine Sulfate Inj) 2 mg Q6HP PRN IV PAIN SCALE 1-7 Last ad ministered on 07/05/18at 10:06; Start 07/05/18 at 08:15 Morphine Sulfate (Morphine Sulfate Inj) 4 mg Q15MP PRN IV SEVERE PAIN (PS 8-10) Last administered on 07/02/18at 17:08; Start 07/02/18 at 16:00; Stop 07/02/18 at 17:09; Status DC Morphine Sulfate (Morphine Sulfate Inj) 4 mg Q4HP PRN IV SEVERE PAIN (PS 8-10) Last administered on 07/05/18at 01:50; Start 07/04/18 at 19:00 Ondansetron HCl (ZOFRAN INJection) 4 mg Q4HP PRN IV NAUSEA OR VOMITING; Start 07/03/18 at 16:15; Stop 07/03/18 at 17:15; Status DC Ondansetron HCl (ZOFRAN INJection) 4 mg Q6HP PRN IV NAUSEA OR VOMITING Last administered on 07/04/18at 22:30; Start 07/04/18 at 16:30 Oxycodone/ Acetaminophen (Percocet 5mg/ 325mg Tablet) 1 tab ASDIRECTED PRN PO MILD/MODERATE PAIN (PS 1-7); Start 07/03/18 at 16:15; Stop 07/03/18 at 17:15; Status DC Oxycodone/ Acetaminophen (Percocet 5mg/ 325mg Tablet) 1 tab Q4HP PRN PO MODERATE PAIN (PS 5-7) Last administered on 07/04/18at 15:52; Start 07/02/18 at 22:30; Stop 07/04/18 at 18:50; Status DC Pantoprazole Sodium (Protonix) 40 mg DAILY PO Last administered on 07/03/18at 08:36; Start 07/03/18 at 09:00; Stop 07/03/18 at 17:04; Status DC Pantoprazole Sodium (Protonix) 40 mg Q12H IV Last administered on 07/05/18at 08:34; Start 07/03/18 at 21:00 Polyethylene Glycol (Miralax) 1 pkt BID PO ; Start 07/05/18 at 09:00; Status Cancel Polyethylene Glycol (Miralax) 1 pkt BID PO ; Start 07/05/18 at 21:00 Potassium Chloride 10 meq/ IV Miscellaneous Supplies 100 ml @ 100 mls/hr 2200,2300 IV Last administered on 07/05/18at 00:00; Start 07/04/18 at 22:00; Stop 07/05/18 at 01:00; Status DC Sodium Biphosphate/ Sodium Phosphate (Fleet Enema) 1 ea DAILY@0800,1400 [place] Last administered on 07/05/18at 14:27; Start 07/05/18 at 14:00; Stop 07/06/18 at 08:01 Sodium Chloride 1,000 ml @ 125 mls/hr Q8H IV Last administered on 07/03/18at 07:55; Start 07/02/18 at 22:24; Stop 07/03/18 at 16:54; Status DC Sodium Chloride 1,000 ml @ 250 mls/hr Q4H IV Last administered on 07/04/18at 15:53; Start 07/04/18 at 16:00; Stop 07/04/18 at 17:06; Status DC Allergies Coded Allergies: SEASONAL ALLERGIES (Verified Allergy, Mild, 03/15/18) Objective Physical Examination Examination GENERAL APPEARANCE: Looks comfortable. SKIN: Warm and moist. HEENT: Normocephalic, atraumatic. [place] palpebral conjunctiva, anicteric scler ae. Lips and mucosa appear moist. NECK: Supple, no thyromegaly. No obvious jugular venous distention. LUNGS: Clear to auscultation bilaterally. No wheezing appreciated. HEART: No chest wall abnormalities. Regular rate and rhythm with no murmurs appreciated. ABDOMEN: Abdomen is minimally distended, soft, and mildly tender on palpation over the epigastric area with no guarding. EXTREMITIES: Extremities have no deformities. No edema identified. Vital Signs Vital Signs Date Time Temp Pulse Resp B/P (MAP) Pulse Ox O2 Delivery O2 Flow Rate FiO2 07/05/18 17:15 99.8 80 18 138/76 (96) 98 07/02/18 22:28 Room Air I&Os I&O- Last 24 Hours up to 6 AM 07/05/18 06:00 Intake Total 4605 ml Output Total 4450 ml Balance 155 ml Laboratory Data Labs 24H Laboratory Tests 2 07/04/18 20:46: Immature Granulocyte % (Auto) 0.2, White Blood Count 12.3H, Red Blood Count 4.20, Hemoglobin 11.5L, Hematocrit 34.3L, Mean Corpuscular Volume 81.7, Mean Corpuscular Hemoglobin 27.4, Mean Corpuscular Hemoglobin Concent 33.5, Red Cell Distribution Width 14.0, Platelet Count 196, Neutrophils (%) (Auto) 82.4H, Lymphocytes (%) (Auto) 11.9L, Monocytes (%) (Auto) 5.3H, Eosinophils (%) (Auto) 0.0, Basophils (%) (Auto) 0.2, Neutrophils # (Auto) 10.2H, Lymphocytes # (Auto) 1.5, Monocytes # (Auto) 0.7, Eosinophils # (Auto) 0.0, Basophils # (Auto) 0.0, Nucleated Red Blood Cells % (auto) 0.0, Anion Gap 11, Blood Urea Nitrogen 6L, Creatinine 0.62, Sodium Level 142, Potassium Level 3.1L, Chloride Level 107, Carbon Dioxide Level 24, Calcium Level 8.1L, Aspartate Amino Transf (AST/SGOT) 24, Alanine Aminotransferase (ALT/SGPT) 38, Alkaline Phosphatase 51, Total Bilirubin 0.4, Total Protein 6.3L, Albumin 2.9L, Magnesium Level 1.4L, Albumin/Globulin Ratio 0.85L 07/05/18 03:11: Immature Granulocyte % (Auto) 0.1, White Blood Count 9.2, Red Blood Count 4.13, Hemoglobin 11.2L, Hematocrit 34.0L, Mean Corpuscular Volume 82.3, Mean Corpuscular Hemoglobin 27.1, Mean Corpuscular Hemoglobin Concent 32.9, Red Cell Distribution Width 14.1, Platelet Count 182, Neutrophils (%) (Auto) 77.7H, Lymphocytes (%) (Auto) 16.9L, Monocytes (%) (Auto) 5.1H, Eosinophils (%) (Auto) 0.1, Basophils (%) (Auto) 0.1, Neutrophils # (Auto) 7.2, Lymphocytes # (Auto) 1.6, Monocytes # (Auto) 0.5, Eosinophils # (Auto) 0.0, Basophils # (Auto) 0.0, Nucleated Red Blood Cells % (auto) 0.0, Anion Gap 9, Blood Urea Nitrogen 4L, Creatinine 0.58, Sodium Level 140, Potassium Level 3.7, Chloride Level 105, Carbon Dioxide Level 26, Calcium Level 8.1L, Aspartate Amino Transf (AST/SGOT) 22, Alanine Aminotransferase (ALT/SGPT) 36, Alkaline Phosphatase 48, Total B ilirubin 0.4, Total Protein 5.8L, Albumin 2.9L, Magnesium Level 2.0, Albumin/Globulin Ratio 1.00, Lipase 2029H 07/05/18 09:16: Immature Granulocyte % (Auto) 0.3, White Blood Count 9.9, Red Blood Count 4.36, Hemoglobin 11.7L, Hematocrit 35.6L, Mean Corpuscular Volume 81.7, Mean C orpuscular Hemoglobin 26.8L, Mean Corpuscular Hemoglobin Concent 32.9, Red Cell Distribution Width 14.2, Platelet Count 191, Neutrophils (%) (Auto) 75.7H, Lymphocytes (%) (Auto) 17.4L, Monocytes (%) (Auto) 6.4H, Eosinophils (%) (Auto) 0.1, Basophils (%) (Auto) 0.1, Neutrophils # (Auto) 7.5, Lymphocytes # (Auto) 1.7, Monocytes # (Auto) 0.6, Eosinophils # (Auto) 0.0, Basophils # (Auto) 0.0, Nucleated Red Blood Cells % (auto) 0.0, Anion Gap 9, Blood Urea Nitrogen 3L, Creatinine 0.59, Sodium Level 138, Potassium Level 3.8, Chloride Level 105, Carbon Dioxide Level 24, Calcium Level 8.6, Aspartate Amino Transf (AST/SGOT) 31, Alanine Aminotransferase (ALT/SGPT) 37, Alkaline Phosphatase 49, Total Bi lirubin 0.7#, Total Protein 6.7, Albumin 3.0L, Albumin/Globulin Ratio 0.81L 07/05/18 15:01: Immature Granulocyte % (Auto) 0.2, White Blood Count 9.5, Red Blood Count 4.49, Hemoglobin 12.0, Hematocrit 36.9, Mean Corpuscular Volume 82.2, Mean Corpuscular Hemoglobin 26.7L, Mean Corpuscular Hemoglobin Concent 32.5, Red Cell Distribution Width 14.2, Platelet Count 217, Neutrophils (%) (Auto) 69.1H, Lymphocytes (%) (Auto) 24.5, Monocytes (%) (Auto) 6.0H, Eosinophils (%) (Auto) 0.1, Basophils (%) (Auto) 0.1, Neutrophils # (Auto) 6.6, Lymphocytes # (Auto) 2.3, Monocytes # (Auto) 0.6, Eosinophils # (Auto) 0.0, Basophils # (Auto) 0.0, Nucleated Red Blood Cells % (auto) 0.0, Anion Gap 11, Blood Urea Nitrogen 4L, Creatinine 0.64, Sodium Level 138, Potassium Level 3.5, Chloride Level 104, Carbon Dioxide Level 23, Calcium Level 8.7, Aspartate Amino Transf (AST/SGOT) 22, Alanine Aminotransferase (ALT/SGPT) 37, Alkaline Phosphatase 50, Total Bilirubin 0.7, Total Protein 7.2, Albumin 3.2, Albumin/Globulin Ratio 0.80L CBC/BMP Laboratory Tests 07/04/18 20:46 Red Blood Count 4.20, Mean Corpuscular Volume 81.7, Mean Corpuscular Hemoglobin 27.4, Mean Corpuscular Hemoglobin Concent 33.5, Red Cell Distribution Width 14.0, Neutrophils (%) (Auto) 82.4 H, Lymphocytes (%) (Auto) 11.9 L, Monocytes (%) (Auto) 5.3 H, Eosinophils (%) (Auto) 0.0, Basophils (%) (Auto) 0.2, Neutrophils # (Auto) 10.2 H, Lymphocytes # (Auto) 1.5, Monocytes # (Auto) 0.7, Eosinophils # (Auto) 0.0, Basophils # (Auto) 0.0, Calcium Level 8.1 L, Aspartate Amino Transf (AST/SGOT) 24, Alanine Aminotransferase (ALT/SGPT) 38, Alkaline Phosphatase 51, Total Bilirubin 0.4, Total Protein 6.3 L, Albumin 2.9 L 07/05/18 03:11 Red Blood Count 4.13, Mean Corpuscular Volume 82.3, Mean Corpuscular Hemoglobin 27.1, Mean Corpuscular Hemoglobin Concent 32.9, Red Cell Distribution Width 14.1, Neutrophils (%) (Auto) 77.7 H, Lymphocytes (%) (Auto) 16.9 L, Monocytes (%) (Auto) 5.1 H, Eosinophils (%) (Auto) 0.1, Basophils (%) (Auto) 0.1, Neutrophils # (Auto) 7.2, Lymphocytes # (Auto) 1.6, Monocytes # (Auto) 0.5, Eosinophils # (Auto) 0.0, Basophils # (Auto) 0.0, Calcium Level 8.1 L, Aspartate Amino Transf (AST/SGOT) 22, Alanine Aminotransferase (ALT/SGPT) 36, Alkaline Phosphatase 48, Total Bilirubin 0.4, Total Protein 5.8 L, Albumin 2.9 L 07/05/18 09:16 Red Blood Count 4.36, Mean Corpuscular Volume 81.7, Mean Corpuscular Hemoglobin 26.8 L, Mean Corpuscular Hemoglobin Concent 32.9, Red Cell Distribution Width 14.2, Neutrophils (%) (Auto) 75.7 H, Lymphocytes (%) (Auto) 17.4 L, Monocytes (%) (Auto) 6.4 H, Eosinophils (%) (Auto) 0.1, Basophils (%) (Auto) 0.1, Neutrophils # (Auto) 7.5, Lymphocytes # (Auto) 1.7, Monocytes # (Auto) 0.6, Eosinophils # (Auto) 0.0, Basophils # (Auto) 0.0, Calcium Level 8.6, Aspartate Amino Transf (AST/SGOT) 31, Alanine Aminotransferase (ALT/SGPT) 37, Alkaline Phosphatase 49, Total Bilirubin 0.7 #, Total Protein 6.7, Albumin 3.0 L 07/05/18 15:01 Red Blood Count 4.49, Mean Corpuscular Volume 82.2, Mean Corpuscular Hemoglobin 26.7 L, Mean Corpuscular Hemoglobin Concent 32.5, Red Cell Distribution Width 14.2, Neutrophils (%) (Auto) 69.1 H, Lymphocytes (%) (Auto) 24.5, Monocytes (%) (Auto) 6.0 H, Eosinophils (%) (Auto) 0.1, Basophils (%) (Auto) 0.1, Neutrophils # (Auto) 6.6, Lymphocytes # (Auto) 2.3, Monocytes # (Auto) 0.6, Eosinophils # (Auto) 0.0, Basophils # (Auto) 0.0, Calcium Level 8.7, Aspartate Amino Transf (AST/SGOT) 22, Alanine Aminotransferase (ALT/SGPT) 37, Alkaline Phosphatase 50, Total Bilirubin 0.7, Total Protein 7.2, Albumin 3.2 Microbiology Microbiology 07/05/18 Blood Culture, Received Pending Impression Choledocholithiasis status post ERCP Post ERCP pancreatitis Patient had bouts of acute pancreatitis following ERCP with sphincterotomy and extraction of common bile duct stone. The main issue yesterday was that the CT scan of the abdomen and pelvis was read by the radiologist is possibility of bile leakage. Thus she was brought to the ICU for closer monitoring. She is doing much better now. The fluid collections are most likely not due to bile leakage but from the inflammatory process involving the acute pancreatitis. She has no signs of peritonitis. Overall I think she will just make an uneventful recovery. Dr. Arredondo has previously seen her and overall plan first to get her home and for her to undergo interval cholecystectomy at about 4-6 weeks' time. Plan / VTE VTE Prophylaxis Ordered?: Yes (SCD and TEDS) PAT ALVARADO MD Jul 05, 2018 18:24
[2018-07-05] MEDS: MIRALAX *UNIT DOSE* 17GM PACKET PO SCH (20:36)
[2018-07-06] VITALS: BP 121/65
[2018-07-06] MEDS: LR 1,000 ML IV SCH ×2 (00:35→07:39)
[2018-07-06 04:00] VITALS: BP 132/69
[2018-07-06] MEDS: MORPHINE 4 MG/ML 1ML VIAL/SYRINGE (J2270) IV PRN (04:25)
[2018-07-06 05:29] LABS: HEMATOCRIT 32.5 % (36.0-47.0); HEMOGLOBIN 10.6 g/dl (12.0-15.5); MEAN CORPUSCULAR HEMOGLOBIN 27.2 pg (27.0-33.0); MEAN CORPUSCULAR HGB CONC 32.6 g/dl (32.0-36.5); MEAN CORPUSCULAR VOLUME 83.3 fl (80.0-96.0); PLATELET COUNT, AUTOMATED 168 10^3/uL (150-450); WHITE BLOOD COUNT 6.3 10^3/uL (4.0-10.0)
[2018-07-06 05:50] LABS: ALBUMIN 2.8 GM/DL (3.2-5.2); ALT/SGPT 27 U/L (12-78); BILIRUBIN,TOTAL 0.6 MG/DL (0.2-1.0); BLOOD UREA NITROGEN 6 MG/DL (7-18); CALCIUM LEVEL 8.2 MG/DL (8.5-10.1); CARBON DIOXIDE LEVEL 22 MEQ/L (21-32); CHLORIDE LEVEL 104 MEQ/L (98-107); CREATININE FOR GFR 0.54 MG/DL (0.55-1.30); GLUCOSE, FASTING 54 MG/DL (70-100); LIPASE 395 U/L (73-393); POTASSIUM SERUM 3.6 MEQ/L (3.5-5.1); SODIUM LEVEL 137 MEQ/L (136-145); TOTAL PROTEIN 6.2 GM/DL (6.4-8.2)
[2018-07-06 08:04] VITALS: BP 127/72
--- NOTE | 2018-07-06 08:11 | IPNPDOC ---
Text Note Date of Service The patient was seen on 07/06/18. NOTE No acute events overnight. Denies nausea, emesis, fevers, or chills. Her abd pain is improved, but she still had to take some pain meds around 4 this am. VSSAF NAD abd - soft, TTP epigastric only, no rebound labs - below, lipase back down today A) 22y/o female s/p ERCP for choledocholithiasis P) diet per GI likely advance diet today and dc home f/u with me either friday or this week in the office to schedule surgery Juan R Arredondo DO VS,Fishbone, I+O VS, Fishbone, I+O Laboratory Tests 07/05/18 09:16 Red Blood Count 4.36, Mean Corpuscular Volume 81.7, Mean Corpuscular Hemoglobin 26.8 L, Mean Corpuscular Hemoglobin Concent 32.9, Red Cell Distribution Width 14.2, Neutrophils (%) (Auto) 75.7 H, Lymphocytes (%) (Auto) 17.4 L, Monocytes (%) (Auto) 6.4 H, Eosinophils (%) (Auto) 0.1, Basophils (%) (Auto) 0.1, Neut rophils # (Auto) 7.5, Lymphocytes # (Auto) 1.7, Monocytes # (Auto) 0.6, Eosinophils # (Auto) 0.0, Basophils # (Auto) 0.0, Calcium Level 8.6, Aspartate Amino Transf (AST/SGOT) 31, Alanine Aminotransferase (ALT/SGPT) 37, Alkaline Phosphatase 49, Total Bilirubin 0.7 #, Total Protein 6.7, Albumin 3.0 L 07/05/18 15:01 Red Blood Count 4.49, Mean Corpuscular Volume 82.2, Mean Corpuscular Hemoglobin 26.7 L, Mean Corpuscular Hemoglobin Concent 32.5, Red Cell Distribution Width 14.2, Neutrophils (%) (Auto) 69.1 H, Lymphocytes (%) (Auto) 24.5, Monocytes (%) (Auto) 6.0 H, Eosinophils (%) (Auto) 0.1, Basophils (%) (Auto) 0.1, Neutrophils # (Auto) 6.6, Lymphocytes # (Auto) 2.3, Monocytes # (Auto) 0.6, Eosinophils # (Auto) 0.0, Basophils # (Auto) 0.0, Calcium Level 8.7, Aspartate Amino Transf (AST/SGOT) 22, Alanine Aminotransferase (ALT/SGPT) 37, Alkaline Phosphatase 50, Total Bilirubin 0.7, Total Protein 7.2, Albumin 3.2 07/06/18 05:01 Red Blood Count 3.90 L, Mean Corpuscular Volume 83.3, Mean Corpuscular Hemoglobin 27.2, Mean Corpuscular Hemoglobin Concent 32.6, Red Cell Distribution Width 14.0, Calcium Level 8.2 L, Aspartate Amino Transf (AST/SGOT) 17, Alanine Aminotransferase (ALT/SGPT) 27, Alkaline Phosphatase 43 L, Total Bilirubin 0.6, Total Protein 6.2 L, Albumin 2.8 L Vital Signs Date Time Temp Pulse Resp B/P (MAP) Pulse Ox O2 Delivery O2 Flow Rate FiO2 07/06/18 08:04 98.2 74 18 127/72 (90) 97 07/02/18 22:28 Room Air I&O- Last 24 Hours up to 6 AM 07/06/18 06:00 Intake Total 3780 ml Output Total 2275 ml Balance 1505 ml JACKELINE ARREDONDO DO Jul 06, 2018 08:10
[2018-07-06] MEDS: PANTOPRAZOLE 40MG INJ (PROTONIX) (C9113) IV SCH ×2 (09:09→21:32)
[2018-07-06] MEDS: FLEET ENEMA PR SCH (10:01)
[2018-07-06 11:36] VITALS: BP 133/75
--- NOTE | 2018-07-06 13:44 | REP ---
MRCP examination without contrast: History: Pancreatitis status post ERCP. Suspected bile leak. Comparison CT study July 04, 2018. Comparison MRCP exam July 02, 2018. Findings: Multiple tiny gallstones are seen in the gallbladder. The gallbladder is somewhat smaller in overall size. There are small slivers of fluid in the pleural spaces bilaterally. There is a decreased amount of ascites in the upper abdomen subhepatic distribution compared with the CT study from July 04, 2018. The intrahepatic bile ducts are normal in caliber. The common bile duct today measures 6 mm in greatest diameter and is within normal size limits. Pancreatic duct is unremarkable. No choledocholithiasis is visible today. There is some diffuse edema and body of the pancreas consistent with pancreatitis. There is no evidence to suggest abscess or hemorrhage. Impression: ERCP shows improved normal size CBD without choledocholithiasis. Persistent cholelithiasis is seen with multiple small stones. Decreased perihepatic ascites. Some persistent pancreatic parenchymal edema. Normal pancreatic duct. Electronically Signed by Dale Horn MD 07/06/2018 02:42 P
[2018-07-06] MEDS: MIRALAX *UNIT DOSE* 17GM PACKET PO SCH ×2 (14:04→21:32)
[2018-07-06 15:40] VITALS: BP 132/79
--- NOTE | 2018-07-06 15:58 | IPN ---
DATE: 07/06/2018 The patient is examined at bedside. She has been downgraded from the intensive care unit (ICU) to the progressive care unit (PCU). No reported issues overnight. She had one episode of emesis and her epigastric pain is much improved today, however, still present. She has no appetite this morning and continues to be nothing by mouth and on IV fluid hydration. Overall, her lipase levels are downtrending and she is improving. She continues to be afebrile with a normal white count and hemodynamically stable. PHYSICAL EXAMINATION: VITAL SIGNS: Temperature 98.2, pulse 74, respirations 18, blood pressure 127/72 with a mean arterial pressure (MAP) of 90, pulse oximetry 97% on room air. GENERAL: Resting comfortably in bed. No acute distress. She is able to fully converse, is alert and oriented times three. HEENT: Normocephalic, atraumatic. Extraocular muscles intact. Moist mucous membranes. Anicteric sclerae. NECK: Supple. CARDIAC: Regular rate and rhythm without any murmur, click or gallops. LUNGS: Clear bilaterally without wheezing, rhonchi or rales. ABDOMEN: Soft, mildly tender to the epigastric area, nondistended. There are normoactive bowel sounds. No rebound, guarding or rigidity. EXTREMITIES: No edema, 2+ radial pulses bilaterally. SKIN: No visible lesions, rashes, or ulcerations. LABORATORY DATA: WBC 6.3, hemoglobin and hematocrit 10.6/32.5, platelets 168. Electrolytes normal. BUN and creatinine 6 and 0.54. Lipase 395. IMAGING: MRCP from today reveals an improved common bile duct without any choledocholithiasis. There is persistent cholelithiasis, decreased perihepatic ascites, normal pancreatic duct, and persistent edema of the pancreatic parenchyma. ASSESSMENT AND PLAN: 1. Post endoscopic retrograde cholangiopancreatography (ERCP) pancreatitis, less likely biliary leak. She is status post ERCP on 07/03/2018 and she is much improved today with supportive care on IV fluids and nothing by mouth overnight. Her lipase levels have downtrended to 300s today. She remains afebrile without any leukocytosis and overall is doing well. Gastroenterology has advanced her diet today. We will continue closely monitoring. Currently, her liver function tests (LFTs) are normal and magnetic resonance cholangiopancreatography (MRCP) today reveals mild improvement overall. IV fluids and diet as per gastroenterology. 2. Choledocholithiasis, status post ERCP on 07/03/2018. The patient underwent a sphincterotomy and a common bile duct stone removal and extraction. LFTs remain normal. Repeat MRCP today reveals improved common bile duct size as well as decreased perihepatic ascites. 3. Cholelithiasis. Per surgery, they would like outpatient followup for interval cholecystectomy. Imaging today reveals that she still has persistent cholelithiasis with multiple scattered stones. 4. Deep vein thrombosis (DVT) prophylaxis, thromboembolic-deterrent stockings (TEDS) and sequential compression devices (SCDs). DISPOSITION: Pending clinical improvement. Possible discharge tomorrow. My faculty preceptor for this patient encounter was physically present during the encounter and was fully available. All aspects of the patient interview, examination, medical decision making process, and medical care plan development were reviewed and approved by the faculty preceptor. The faculty preceptor is aware and concurs with the plan as stated in the body of this note and will attest to such by his/her co-signature.
[2018-07-06 20:00] VITALS: BP 119/67
[2018-07-07] VITALS: BP 136/82
[2018-07-07 04:00] VITALS: BP 107/63
[2018-07-07 05:52] LABS: HEMATOCRIT 35.2 % (36.0-47.0); HEMOGLOBIN 11.5 g/dl (12.0-15.5); MEAN CORPUSCULAR HEMOGLOBIN 26.7 pg (27.0-33.0); MEAN CORPUSCULAR HGB CONC 32.7 g/dl (32.0-36.5); MEAN CORPUSCULAR VOLUME 81.9 fl (80.0-96.0); PLATELET COUNT, AUTOMATED 203 10^3/uL (150-450); WHITE BLOOD COUNT 4.4 10^3/uL (4.0-10.0)
[2018-07-07 06:26] LABS: ALT/SGPT 24 U/L (12-78); BILIRUBIN,TOTAL 0.4 MG/DL (0.2-1.0); BLOOD UREA NITROGEN 5 MG/DL (7-18); CALCIUM LEVEL 8.5 MG/DL (8.5-10.1); CARBON DIOXIDE LEVEL 24 MEQ/L (21-32); CHLORIDE LEVEL 105 MEQ/L (98-107); GLUCOSE, FASTING 69 MG/DL (70-100); POTASSIUM SERUM 3.6 MEQ/L (3.5-5.1); SODIUM LEVEL 138 MEQ/L (136-145); TOTAL PROTEIN 7.1 GM/DL (6.4-8.2)
[2018-07-07 08:00] VITALS: BP 128/70
[2018-07-07] MEDS ORDERED: MIRA3350 PO (09:14)
[2018-07-07] MEDS: MIRALAX *UNIT DOSE* 17GM PACKET PO SCH (09:31)
[2018-07-07] MEDS: PANTOPRAZOLE 40MG INJ (PROTONIX) (C9113) IV SCH (09:31)
--- NOTE | 2018-07-07 13:51 | DS.PDOC ---
Discharge Summary General Date of Admission Jul 02, 2018 at 22:02 Date of Discharge 07/07/2018 Attending Physician: HIREN ROMAN DO Specialist/Consultants Involve GI: Dr. Lott Gen. surgery: Dr. Ugadle, Dr. Arredondo Discharge Summary PROCEDURES PERFORMED DURING STAY: ERCP 07/03/2018 ADMITTING DIAGNOSES: 1. Cholelithiasis 2. Choledocholithiasis DISCHARGE DIAGNOSES: 1. Choledocholithiasis resolved S/P ERCP sphincterotomy and stone extraction 2. Post ERCP pancreatitis 3. Choledocholithiasis COMPLICATIONS/CHIEF COMPLAINT: Cholelithiasis W Choledocholithiasis. HISTORY OF PRESENT ILLNESS: 22-year-old female presented to ER for abdominal pain associated nausea and vomiting. No changes in bowel habits. Abdominal pain was worse with eating, and stated that this had been ongoing for the past few months. Imaging of the ER was positive for choledocholithiasis with dilated common bile duct, as well as cholelithiasis and multiple stones in the gallbladder. HOSPITAL COURSE: Patient was admitted, Gen. surgery was consulted for the cholelithiasis, and recommended outpatient follow-up for interval cholecystectomy. GI was also consulted for the dilated common bile duct. Patient continued to have epigastric and right upper quadrant area pain as well as decreased by mouth intake. Patient is made nothing by mouth, started on IV flu ids and pain meds, underwent ERCP the next day, with sphincterotomy and stone extraction. She recovered well from the ERCP, and was scheduled for discharge the next day. However as her diet was advanced, after eating lunch, she began to have significant epigastric pain with nausea and vomiting and visibly in distress. Repeat imaging of the abdomen revealed possible biliary leak, and lipase was noted to be elevated 4000+. GI and surgery were updated, and they've reviewed the films themselves, and agreed that it's unlikely a biliary leak, and more likely peripancreatic fluid from post ERCP pancreatitis. Patient was made nothing by mouth again, transferred to the ICU for close monitoring. She was started on aggressive IV fluids and pain control. She gradually began to improve with supportive care and without any additional interventions, and lipase levels trended down. She ultimately began having an appetite, and follow-up MRCP revealed improved, bile duct and decreased perihepatic ascites. Diet was slowly advanced, which she tolerated well this time. She was recommended for discharge, and with close follow-up with her PCP as well as general surgery for her cholelithiasis. All qs answered, and plan of care discussed with patient. DISCHARGE MEDICATIONS: Please see below. ALLERGIES: Please see below. PHYSICAL EXAMINATION ON DISCHARGE: VITAL SIGNS: Please see below. GENERAL: Resting comfortably in bed. No acute distress. She is able to fully converse, is alert and oriented times three. HEENT: Normocephalic, atraumatic. Extraocular muscles intact. Moist mucous membranes. Anicteric sclerae. NECK: Supple. CARDIAC: Regular rate and rhythm without any murmur, click or gallops. LUNGS: Clear bilaterally without wheezing, rhonchi or rales. ABDOMEN: Soft, nontender, nondistended. Normoactive bowel sounds. No rebound, guarding or rigidity. EXTREMITIES: No edema, 2+ radial pulses bilaterally. SKIN: No visible lesions, rashes, or ulcerations. LABORATORY DATA: Please see below. IMAGING: * 07/02/2018 gallbladder ultrasound: Cholelithiasis. There is diltation of the common bile duct secondary to a 5 mm stone present in the distal common bile duct. * 07/02/2018 MRCP: 1. Cholelithiasis with multiple small stones demonstrated within the lumen of the gallbladder. No gallbladder wall thickening or pericholecystic fluid. 2. Common bile duct dilated to 12 mm. Small 3.5 mm calculus demonstrated in the distal common bile duct consistent with choledocholithiasis. Mild dilatation of the intrahepatic biliary system demonstrated as well. * 07/03/2018 ERCP: Multiple images from fluoroscopy provided to Dr. Ruiz of the gastroenterology division are reviewed. Passage of a wire and catheter into the common duct with contrast injection demonstrated dilatation of common duct and proximal intrahepatic ducts. Balloon catheter than passed with the balloon inflated and pulled back. No filling defect is identified at the conclusion of the examination within that common duct. No filling defect or air bubbles within the intrahepatic ducts or common hepatic duct on any of the images. * 07/04/2018 CT abdomen: There is free fluid in the upper abdomen extending from the eyal hepatis across the midline to the spleen and across the anterior margin of the upper pole of the left kidney, possibly a bile leak. No pneumoperitoneum. There is a gallbladder calculus. There is pneumobilia. No pneumoperitoneum. * 07/06/2018 MRCP: ERCP shows improved normal size CBD without choledochol ithiasis. Persistent cholelithiasis is seen with multiple small stones. Decreased perihepatic ascites. Some persistent pancreatic parenchymal edema. Normal pancreatic duct. PROGNOSIS: good ACTIVITY: As tolerated. DIET: as tolerated DISPOSITION: 01 Home, Self-Care. DISCHARGE INSTRUCTIONS: 1. Follow-up with PCP within one week, and with general surgery this week as scheduled for discussion of interval cholecystectomy 2. Return to ER for emergency 3. Stay hydrated DISCHARGE CONDITION: Stable. TIME SPENT ON DISCHARGE: Greater than 35 minutes. Vital Signs/I&Os Vital Signs Date Time Temp Pulse Resp B/P (MAP) Pulse Ox O2 Delivery O2 Flow Rate FiO2 07/07/18 08:00 99.0 71 16 128/70 (89) 97 07/02/18 22:28 Room Air I&O- Last 24 Hours up to 6 AM 07/07/18 06:00 Intake Total 1610 ml Output Total 3100 ml Balance -1490 ml Laboratory Data Labs 24H Laboratory Tests 2 07/07/18 05:29: Nucleated Red Blood Cells % (auto) 0.0, Anion Gap 9, Blood Urea Nitrogen 5L, Creatinine 0.60, Sodium Level 138, Potassium Level 3.6, Chloride Level 105, C arbon Dioxide Level 24, Calcium Level 8.5, Aspartate Amino Transf (AST/SGOT) 18, Alanine Aminotransferase (ALT/SGPT) 24, Alkaline Phosphatase 45, Total Bilirubin 0.4, Total Protein 7.1, Albumin 3.0L, Albumin/Globulin Ratio 0.73L CBC/BMP Laboratory Tests 07/07/18 05:29 Red Blood Count 4.30, Mean Corpuscular Volume 81.9, Mean Corpuscular Hemoglobin 26.7 L, Mean Corpuscular Hemoglobin Concent 32.7, Red Cell Distribution Width 13.7, Calcium Level 8.5, Aspartate Amino Transf (AST/SGOT) 18, Alanine Aminotransferase (ALT/SGPT) 24, Alkaline Phosphatase 45, Total Bilirubin 0.4, To fabiola Protein 7.1, Albumin 3.0 L Microbiology Microbiology 07/05/18 Blood Culture - Preliminary, Resulted No Growth after 48 hours. All Specime... Discharge Medications Scheduled (Arlet Fe 05/31 1-20 mg-Mcg) 1 Tab Tab, 1 TAB PO DAILY, (Reported) Polyethylene Glycol (Miralax) 1 Pow Pow, 17 GRAM PO DAILY for constipation dissolve in water Scheduled PRN Ketorolac Tromethamine (Ketorolac Tromethamine) 10 Mg Tab, 10 MG PO Q6H PRN for PAIN, (Reported) Ondansetron (Ondansetron Odt) 4 Mg Tab, 4 MG PO Q6-8HP PRN for nausea/vomiting, (Reported) Allergies Coded Allergies: SEASONAL ALLERGIES (Verified Allergy, Mild, 03/15/18) GME ATTESTATION GME ATTESTATION My faculty preceptor for this patient encounter was physically present during the encounter and was fully available. All aspects of the patient interview, examination, medical decision making process, and medical care plan development were reviewed and approved by the faculty preceptor. The faculty preceptor is aware and concurs with the plan as stated in the body of this note and will attest to such by his/her cosignature. GME ATTESTATION GME ATTESTATION My faculty preceptor for this patient encounter was physically present during the encounter and was fully available. All aspects of the patient interview, examination, medical decision making process, and medical care plan development were reviewed and approved by the faculty preceptor. The faculty preceptor is aware and concurs with the plan as stated in the body of this note and will attest to such by his/her cosignature. LANCE OLIVO DO Jul 07, 2018 13:51
== END 2018-07-07 13:13 | disposition home or self-care (01) ==
LOC: M ED 13:59 → M ED INP 22:02 → M PED 23:25 → M ICU 07-04 18:20 → M PCU 07-05 17:05
PROVIDERS: ADMIT Hospitalist; ATTEND Internal Medicine
PROC: 0FC98ZZ Extirpation of Matter from Common Bile Duct, Via Natural or Artificial Opening Endoscopic (ICD-10-PCS; principal; 2018-07-03 13:45)
DX: K80.50 Calculus of bile duct without cholangitis or cholecystitis without obstruction (principal); K85.90 Acute pancreatitis without necrosis or infection, unspecified; K91.89 Other postprocedural complications and disorders of digestive system

== ENCOUNTER 2018-08-07 09:49 | Day surgery (SDC) | payer OTHER ==
[~2018-08-07] VITALS: Ht 154.9 cm; Wt 61.3 kg
[~2018-08-07 09:49] MED LIST changes: +LARI1TAB3 PO; +LARIN PO; +LIDOCAINE 1% MDV 20ML VIAL SQ PRN; +LR 1,000 ML IV ONE; +MIRA3350 PO
[2018-08-07 10:31] LABS: URINE PREG TEST NEGATIVE (NEGATIVE)
[2018-08-07] MEDS ORDERED: NEOSTIGMINE 10 MG/10 ML VIAL (J2710) As Ordered ONE (10:44)
[2018-08-07] MEDS ORDERED: ONDANSETRON 4MG/2ML VIAL (J2405) As Ordered ONE (10:44)
[2018-08-07] MEDS ORDERED: PROPOFOL 200 MG/20 ML VIAL As Ordered ONE (10:44)
[2018-08-07] MEDS ORDERED: dexameTHASONE 4 MG/ML 1ML VIAL (J1100) As Ordered ONE (10:44)
[2018-08-07] MEDS ORDERED: ROCURONIUM BROMIDE 50 MG/5 ML VIAL As Ordered ONE (10:44)
[2018-08-07] MEDS ORDERED: LIDOCAINE 2% INJ 100 MG/5 ML SDV (FOR ANES.) As Ordered ONE (10:44)
[2018-08-07] MEDS ORDERED: GLYCOPYRROLATE INJ 0.2 MG/ML 2 ML VIAL As Ordered ONE (10:44)
[2018-08-07] MEDS ORDERED: MIDAZOLAM INJ 2 MG/2 ML VIAL (J2250) As Ordered ONE (10:45)
[2018-08-07] MEDS ORDERED: fentaNYL 100 MCG/2 ML INJECTION (J3010) As Ordered ONE ×2 (10:45→12:57)
[2018-08-07] MEDS ORDERED: BUPIVACAINE/EPIN 0.25% 30 ML VIAL As Ordered ONE (12:25)
[2018-08-07] MEDS ORDERED: KETOROLAC 60 MG/2 ML VIAL (J1885) As Ordered ONE (12:46)
[2018-08-07] MEDS ORDERED: MEPERIDINE INJ 25 MG/ML VIAL (J2175) As Ordered ONE (13:32)
[2018-08-07] MEDS: MEPERIDINE INJ 25 MG/ML VIAL (J2175) IV PRN ×2 (13:33→13:38)
[2018-08-07] MEDS ORDERED: ONDANSETRON 4MG/2ML VIAL (J2405) IV PRN (14:00)
[2018-08-07] MEDS ORDERED: LR 1,000 ML IV SCH (14:00)
[2018-08-07] MEDS ORDERED: NORCO, ANEXSIA 5/325MG TABLET (HYDROcodone/ACETAMINOPHEN) PO PRN (14:00)
[2018-08-07] MEDS ORDERED: fentaNYL 100 MCG/2 ML INJECTION (J3010) IV PRN (14:00)
[2018-08-07] MEDS: NORCO, ANEXSIA 5/325MG TABLET (HYDROcodone/ACETAMINOPHEN) PO PRN ×2 (14:02→14:34)
[2018-08-07 17:00] VITALS: BP 124/84
--- NOTE | 2018-08-10 10:13 | RO ---
DATE OF PROCEDURE: 08/07/2018 PREOPERATIVE DIAGNOSIS: Symptomatic cholelithiasis. POSTOPERATIVE DIAGNOSIS: Symptomatic cholelithiasis. PROCEDURE: Laparoscopic cholecystectomy. SURGEON: Dr. Horace Arredondo MOHEL: Dr. Carvalho assisted with retraction and removal of gallbladder. ANESTHESIA: General. ESTIMATED BLOOD LOSS: 5. COMPLICATIONS: None. INDICATIONS FOR PROCEDURE: The patient is a 22-year-old female who presents with right upper quadrant abdominal pain and found have symptomatic cholelithiasis. Recommendation to proceed with laparoscopic possible open cholecystectomy. Risks and benefits of the procedure not limited but including bleeding, infection, hernia formation, damage to surrounding structures, need for further surgery were discussed in detail with the patient. Informed consent was obtained. Procedure was planned. PROCEDURE: The patient brought back to operating room three. After sufficient sedation, the abdomen was sterilely prepped and draped. Next, time out was done to confirm proper patient and proper procedure. Following that, a stab incision was made in the left lower quadrant. Veress needle was inserted and the abdomen was insufflated with 15 mmHg. Next a 5 mm supraumbilical midline incision was made and a 5 mm Optiview port was used to gain access in the abdomen. Once the abdomen was entered, Veress needle site was examined. No signs of any injury. Veress needle was then removed. 11 mm port was placed subxiphoid. Two 5 mm ports were then placed in the right upper quadrant. The fundus of the gallbladder was elevated up towards the right shoulder. Cyst duct and cystic artery carefully dissected free using combination of blunt and sharp dissection. Once they were both clearly identified, they were both doubly clipped and cut. The gallbladder was then removed from gallbladder fossa using electrocautery. Once the gallbladder was taken off, it was taken out through a 10 mm bag to the subxiphoid port site. The abdomen was then desufflated. Skin incisions closed with #4-0 Vicryl subcuticular sutures. Abdomen cleaned and dried. Steri-Strips, 4x4 and tape were applied thus ending procedure.
== END 2018-08-07 17:30 | disposition home or self-care (01) ==
LOC: M SDC 09:49
PROVIDERS: ATTEND Surgery
DX: K80.18 Calculus of gallbladder with other cholecystitis without obstruction (principal); Z79.899 Other long term (current) drug therapy
CPT/HCPCS: 47562; 84703; 88304; J1100; J1885; J2175; J2250; J2405; J2710; J3010

== ENCOUNTER 2018-09-22 14:56 | Emergency (ER) | payer OTHER ==
[~2018-09-22] VITALS: Ht 154.9 cm; Wt 61.4 kg
[~2018-09-22 14:56] MED LIST changes: -LIDOCAINE 1% MDV 20ML VIAL SQ PRN; -LR 1,000 ML IV ONE
[2018-09-22] MEDS ORDERED: ADACEL/BOOSTRIX VACCINE (DIPHTH/PERTUSS/ACELL/TETANUS)0.5ML SYR (90715) IM ONE (16:00)
[2018-09-22] MEDS ORDERED: KEFL500C17 PO (16:02)
[2018-09-22 16:22] VITALS: BP 106/57
== END 2018-09-22 16:27 | disposition home or self-care (01) ==
LOC: M ED 14:56
DX: S81.812A Laceration without foreign body, left lower leg, initial encounter (principal); W25.XXXA Contact with sharp glass, initial encounter; Y92.018 Other place in single-family (private) house as the place of occurrence of the external cause

== ENCOUNTER 2019-08-19 17:45 | Emergency (ER) | payer OTHER ==
[~2019-08-19] VITALS: Ht 160 cm; Wt 59.1 kg
[~2019-08-19 17:45] MED LIST changes: +KEFL500C17 PO
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
[2019-08-19 19:54] VITALS: BP 150/75
== END 2019-08-19 19:56 | disposition home or self-care (01) ==
LOC: M ED 17:45 → EDBD 17:45 → M ED 19:56
DX: S70.01XA Contusion of right hip, initial encounter (principal); V43.62XA Car passenger injured in collision with other type car in traffic accident, initial encounter; Y92.9 Unspecified place or not applicable; Y93.9 Activity, unspecified; Y99.9 Unspecified external cause status; J30.2 Other seasonal allergic rhinitis

== ENCOUNTER → 2019-09-23 | Outpatient (REF) | payer OTHER, MEDICAID ==
[2019-09-23 13:39] LABS: BASO % 0.6 % (0.0-1.0); EOS # 0.2 10^3/uL (0.0-0.5); EOS % 2.3 % (0.0-3.0); HEMOGLOBIN 14.1 g/dl (12.0-15.5); LYMPH # 2.8 10^3/uL (1.5-5.0); LYMPH % 43.5 % (24.0-44.0); MEAN CORPUSCULAR HEMOGLOBIN 28.7 pg (27.0-33.0); MEAN CORPUSCULAR HGB CONC 32.8 g/dl (32.0-36.5); MEAN CORPUSCULAR VOLUME 87.6 fl (80.0-96.0); MONO # 0.5 10^3/uL (0.0-0.8); NEUTROPHILS % 46.4 % (36.0-66.0); PLATELET COUNT, AUTOMATED 252 10^3/uL (150-450); RED BLOOD COUNT 4.91 10^6/uL (4.00-5.40); WHITE BLOOD COUNT 6.4 10^3/uL (4.0-10.0)
[2019-09-23 13:53] LABS: ALT/SGPT 24 U/L (12-78); BILIRUBIN,TOTAL 0.3 MG/DL (0.2-1.0); BLOOD UREA NITROGEN 13 MG/DL (7-18); CALCIUM LEVEL 9.2 MG/DL (8.5-10.1); CARBON DIOXIDE LEVEL 26 MEQ/L (21-32); CHLORIDE LEVEL 107 MEQ/L (98-107); CHOLESTEROL LEVEL 111 MG/DL (<200); CHOLESTEROL RISK RATIO 2.413 (<5); CREATININE FOR GFR 0.76 MG/DL (0.55-1.30); FREE T4 1.24 NG/DL (0.76-1.46); GLOMERULAR FILTRATION RATE > 60.0 (>60); GLUCOSE, FASTING 106 MG/DL (70-100); HDL CHOLESTEROL 46 MG/DL (>40); LDL CHOLESTEROL 39 MG/DL (<100); NON-HDL-C 65 MG/DL; POTASSIUM SERUM 4.3 MEQ/L (3.5-5.1); SODIUM LEVEL 139 MEQ/L (136-145); TOTAL 25(OH) VITAMIN D 20.7 NG/ML (30.0-100.0); TOTAL PROTEIN 7.3 GM/DL (6.4-8.2); TRIGLYCERIDES LEVEL 130 MG/DL (<150)
[2019-09-23 14:27] LABS: HEMOGLOBIN A1c 5.5 %
== END ==
LOC: M LAB REF 13:15
PROVIDERS: ATTEND Nurse Practitioner Family
DX: M54.5 Low back pain (principal); S71.121A Laceration with foreign body, right thigh, initial encounter; Z13.9 Encounter for screening, unspecified

== ENCOUNTER → 2020-06-06 | Outpatient (CLI) | payer SELFPAY | LOC: M LABSMTC 13:04 | PROVIDERS: ATTEND Pediatrics | DX: Z20.822 Contact with and (suspected) exposure to COVID-19 (principal) ==

== ENCOUNTER → 2021-06-06 | Outpatient (REF) | payer OTHER | LOC: M LAB REF 16:19 | PROVIDERS: ATTEND Physician Assistant | DX: R07.0 Pain in throat (principal) ==

== ENCOUNTER → 2022-01-09 | Outpatient (CLI) | payer OTHER | LOC: M RAD 13:41 | PROVIDERS: ATTEND Physician Assistant | DX: R10.9 Unspecified abdominal pain (principal); R18.8 Other ascites ==

== ENCOUNTER 2022-01-10 12:51 | Emergency (ER) | payer OTHER ==
[~2022-01-10] VITALS: Ht 152.4 cm; Wt 78.0 kg
[2022-01-10 12:52] VITALS: BP 135/77
== END 2022-01-10 15:15 | disposition left against medical advice (07) ==
LOC: M ED 12:51
DX: Z53.21 Procedure and treatment not carried out due to patient leaving prior to being seen by health care provider (principal)

== ENCOUNTER → 2022-02-01 | Outpatient (REF) | payer OTHER | LOC: M LAB REF 12:00 | PROVIDERS: ATTEND Physician Assistant | DX: R52 Pain, unspecified (principal) ==

== ENCOUNTER 2022-09-12 16:04 | Emergency (ER) | payer OTHER ==
[~2022-09-12] VITALS: Ht 154.9 cm; Wt 78.6 kg
[2022-09-12 16:05] VITALS: BP 131/83
[2022-09-12 17:10] LABS: BASO % 0.3 % (0.0-1.0); EOS # 0.1 10^3/uL (0.0-0.5); EOS % 1.2 % (0.0-3.0); HEMATOCRIT 42.3 % (36.0-47.0); HEMOGLOBIN 14.1 g/dl (12.0-15.5); LYMPH # 2.2 10^3/uL (1.5-5.0); MEAN CORPUSCULAR HEMOGLOBIN 29.1 pg (27.0-33.0); MEAN CORPUSCULAR HGB CONC 33.3 g/dl (32.0-36.5); MEAN CORPUSCULAR VOLUME 87.4 fl (80.0-96.0); MONO # 0.5 10^3/uL (0.0-0.8); MONO % 5.4 % (2.0-8.0); NEUTROPHILS # 6.7 10^3/uL (1.5-8.5); NEUTROPHILS % 69.7 % (36.0-66.0); PLATELET COUNT, AUTOMATED 266 10^3/uL (150-450); RED BLOOD COUNT 4.84 10^6/uL (4.00-5.40); WHITE BLOOD COUNT 9.7 10^3/uL (4.0-10.0)
[2022-09-12 17:40] LABS: BLOOD UREA NITROGEN 9 MG/DL (9-23); CALCIUM LEVEL 8.4 MG/DL (8.5-10.1); CARBON DIOXIDE LEVEL 26 MMOL/L (20-31); CHLORIDE LEVEL 107 MMOL/L (98-107); CREATININE FOR GFR 0.68 MG/DL (0.55-1.30); GLOMERULAR FILTRATION RATE > 60.0 (>60); GLUCOSE, FASTING 87 MG/DL (60-100); POTASSIUM SERUM 4.7 MMOL/L (3.5-5.1); SODIUM LEVEL 138 MMOL/L (136-145)
== END 2022-09-12 17:55 | disposition left against medical advice (07) ==
LOC: M ED 16:04
DX: O26.859 Spotting complicating pregnancy, unspecified trimester (principal); Z3A.00 Weeks of gestation of pregnancy not specified; Z53.21 Procedure and treatment not carried out due to patient leaving prior to being seen by health care provider

== ENCOUNTER → 2022-11-14 | Outpatient (REF) | payer OTHER | LOC: M SFHCWAGY 10:07 | PROVIDERS: ATTEND Nurse Practitioner Family | DX: Z01.419 Encounter for gynecological examination (general) (routine) without abnormal findings (principal); Z77.9 Other contact with and (suspected) exposures hazardous to health ==

== ENCOUNTER 2023-03-02 14:02 | Emergency (ER) | payer OTHER ==
[~2023-03-02] VITALS: Ht 152.4 cm; Wt 81.8 kg
[2023-03-02] MEDS ORDERED: ACET325C5 PO (15:59)
[2023-03-02] MEDS ORDERED: IBUP80TA PO (15:59)
[2023-03-02 16:18] VITALS: BP 133/78; TEMP 98; O2SAT 96
== END 2023-03-02 16:27 | disposition home or self-care (01) ==
LOC: M ED 14:02
DX: S93.491A Sprain of other ligament of right ankle, initial encounter (principal); X50.0XXA Overexertion from strenuous movement or load, initial encounter; Y92.009 Unspecified place in unspecified non-institutional (private) residence as the place of occurrence of the external cause; Y93.9 Activity, unspecified; Y99.9 Unspecified external cause status; Z79.1 Long term (current) use of non-steroidal anti-inflammatories (NSAID)

== ENCOUNTER → 2023-04-05 | Outpatient (REF) | payer OTHER ==
[~2023-04-05] MED LIST changes: +ACET325C5 PO; +IBUP80TA PO
== END ==
LOC: M LAB REF 18:21
PROVIDERS: ATTEND Physician Assistant Medical
DX: J02.9 Acute pharyngitis, unspecified (principal)

== ENCOUNTER → 2023-04-07 | Outpatient (CLI) | payer MEDICAID | LOC: M OUTALCOH 08:38 | PROVIDERS: ATTEND Psychiatry & Neurology Psychiatry | DX: Z13.39 Encounter for screening examination for other mental health and behavioral disorders (principal) ==

== ENCOUNTER → 2023-04-13 | Outpatient (REF) | payer MEDICAID | LOC: M LAB REF 17:25 | PROVIDERS: ATTEND Physician Assistant Medical | DX: B34.9 Viral infection, unspecified (principal) ==

== ENCOUNTER 2023-05-02 10:00 | Outpatient (RCR) | payer MEDICAID | END 2023-05-11 | LOC: M OUTALCOH 10:00 | PROVIDERS: ATTEND Psychiatry & Neurology Psychiatry | DX: F12.10 Cannabis abuse, uncomplicated (principal); F14.10 Cocaine abuse, uncomplicated ==

== ENCOUNTER 2023-06-03 08:52 | Outpatient (RCR) | payer MEDICAID | END 2023-06-11 | LOC: M OUTALCOH 08:52 | PROVIDERS: ATTEND Psychiatry & Neurology Psychiatry | DX: F12.10 Cannabis abuse, uncomplicated (principal); F14.10 Cocaine abuse, uncomplicated ==

== ENCOUNTER 2023-06-24 11:54 | Outpatient (RCR) | payer MEDICAID ==
[2023-07-04] MEDS ORDERED: CYCL-707 PO (15:30)
[2023-07-04] MEDS ORDERED: LIDO5DIS41 TD (15:30)
[2023-07-04] MEDS ORDERED: IBUP-1022 PO (15:30)
[2023-07-06] MEDS ORDERED: AMOX500C PO (20:44)
[2023-07-07] MEDS ORDERED: IBUP-1022 PO (18:32)
[2023-07-07] MEDS ORDERED: ONDA4TAB6 PO (18:32)
[2023-07-07] MEDS ORDERED: ACET-683 PO (18:32)
== END 2023-07-10 ==
LOC: M OUTALCOH 11:54
PROVIDERS: ATTEND Psychiatry & Neurology Psychiatry
DX: F12.10 Cannabis abuse, uncomplicated (principal); F14.10 Cocaine abuse, uncomplicated

== ENCOUNTER → 2023-07-03 | Outpatient (REF) | payer MEDICAID ==
[~2023-07-03] MED LIST changes: +CYCL-707 PO; +IBUP-1022 PO; +LIDO5DIS41 TD
== END ==
LOC: M LAB REF 12:06
PROVIDERS: ATTEND Physician Assistant
DX: B34.9 Viral infection, unspecified (principal)

== ENCOUNTER 2023-07-04 11:23 | Emergency (ER) | payer MEDICAID, OTHER ==
[~2023-07-04] VITALS: Ht 167.6 cm; Wt 180.0 kg
[~2023-07-04 11:23] MED LIST changes: -CYCL-707 PO; -IBUP-1022 PO; -LIDO5DIS41 TD
[2023-07-04] MEDS: LIDOCAINE 5% (LIDODERM) PATCH TD ONE (12:10)
[2023-07-04] MEDS: ACETAMINOPHEN 500 MG TAB PO ONE (12:11)
[2023-07-04 12:45] LABS: HEMATOCRIT 43.8 % (36.0-47.0); HEMOGLOBIN 14.4 g/dl (12.0-15.5); MEAN CORPUSCULAR HEMOGLOBIN 28.7 pg (27.0-33.0); MEAN CORPUSCULAR HGB CONC 32.9 g/dl (32.0-36.5); MEAN CORPUSCULAR VOLUME 87.3 fl (80.0-96.0); PLATELET COUNT, AUTOMATED 213 10^3/uL (150-450); RED BLOOD COUNT 5.02 10^6/uL (4.00-5.40); WHITE BLOOD COUNT 5.3 10^3/uL (4.0-10.0)
[2023-07-04 13:17] LABS: ERYTHROCYTE SEDIMENTATION RATE 7 mm/hr (0-20)
[2023-07-04] MEDS: KETOROLAC 30 MG/ML 1ML VIAL IV ONE (14:37)
[2023-07-04] MEDS ORDERED: LIDO5DIS41 TD (15:30)
[2023-07-04] MEDS ORDERED: IBUP-1022 PO (15:30)
[2023-07-04] MEDS ORDERED: CYCL-707 PO (15:30)
[2023-07-04 15:40] VITALS: BP 121/74; TEMP 97.2; O2SAT 100
== END 2023-07-04 15:45 | disposition home or self-care (01) ==
LOC: M ED 11:23
DX: M43.16 Spondylolisthesis, lumbar region (principal); J30.2 Other seasonal allergic rhinitis
CPT/HCPCS: 72110; 84702; 85027; 85652; 86140; 96374; 99284; J1885

== ENCOUNTER 2023-07-06 17:15 | Emergency (ER) | payer OTHER ==
[~2023-07-06] VITALS: Ht 152.4 cm; Wt 80.9 kg
[~2023-07-06 17:15] MED LIST changes: +CYCL-707 PO; +IBUP-1022 PO; +LIDO5DIS41 TD
[2023-07-06 18:36] LABS: BASO % 0.2 % (0.0-1.0); EOS % 0.2 % (0.0-3.0); HEMATOCRIT 41.3 % (36.0-47.0); LYMPH # 2.6 10^3/uL (1.5-5.0); LYMPH % 20.5 % (24.0-44.0); MEAN CORPUSCULAR HEMOGLOBIN 29.1 pg (27.0-33.0); MEAN CORPUSCULAR HGB CONC 33.9 g/dl (32.0-36.5); MEAN CORPUSCULAR VOLUME 85.9 fl (80.0-96.0); MONO # 0.5 10^3/uL (0.0-0.8); MONO % 4.3 % (2.0-8.0); NEUTROPHILS # 9.5 10^3/uL (1.5-8.5); NEUTROPHILS % 74.6 % (36.0-66.0); PLATELET COUNT, AUTOMATED 220 10^3/uL (150-450); RED BLOOD COUNT 4.81 10^6/uL (4.00-5.40); WHITE BLOOD COUNT 12.7 10^3/uL (4.0-10.0)
[2023-07-06 18:52] LABS: LIPASE 29 U/L (12-53)
[2023-07-06 18:54] LABS: HCG, SERUM QUALITATIVE NEGATIVE (NEGATIVE)
[2023-07-06 18:55] LABS: ALKALINE PHOSPHATASE 52 U/L (46-116); ALT/SGPT 23 U/L (7.0-40); AST/SGOT 15 U/L (<34); BILIRUBIN,DIRECT 0.2 MG/DL (<0.4); BILIRUBIN,TOTAL 0.4 MG/DL (0.3-1.2); BLOOD UREA NITROGEN 8 MG/DL (9-23); CALCIUM LEVEL 8.7 MG/DL (8.5-10.1); CARBON DIOXIDE LEVEL 24 MMOL/L (20-31); CHLORIDE LEVEL 110 MMOL/L (98-107); CREATININE FOR GFR 0.66 MG/DL (0.55-1.30); GLOMERULAR FILTRATION RATE > 60.0 (>60); GLUCOSE, FASTING 88 MG/DL (60-100); POTASSIUM SERUM 3.7 MMOL/L (3.5-5.1); SODIUM LEVEL 139 MMOL/L (136-145)
[2023-07-06 19:13] LABS: RSV AMPLIFICATION NEGATIVE (NEGATIVE)
[2023-07-06] MEDS: AMOXICILLIN 500 MG CAP PO ONE (19:50)
[2023-07-06] MEDS ORDERED: ISOVUE-370 76% 100ML VIAL As Ordered ONE (19:52)
[2023-07-06] MEDS: ACETAMINOPHEN TAB 650MG DOSE (2X325MG) PO ONE (20:22)
[2023-07-06 20:28] VITALS: BP 125/90; TEMP 97; O2SAT 100
[2023-07-06] MEDS ORDERED: AMOX500C PO (20:44)
[2023-07-07] MEDS ORDERED: ONDA4TAB6 PO (18:32)
[2023-07-07] MEDS ORDERED: IBUP-1022 PO (18:32)
[2023-07-07] MEDS ORDERED: ACET-683 PO (18:32)
== END 2023-07-06 20:56 | disposition home or self-care (01) ==
LOC: M ED 17:15
DX: J02.0 Streptococcal pharyngitis (principal); B97.10 Unspecified enterovirus as the cause of diseases classified elsewhere
CPT/HCPCS: 74177; 80048; 80076; 83690; 84703; 85025; 87631; 87880; 99284; Q9967

== ENCOUNTER 2023-07-07 12:35 | Emergency (ER) | payer OTHER ==
[~2023-07-07] VITALS: Ht 152.4 cm; Wt 80.2 kg
[~2023-07-07 12:35] MED LIST changes: +AMOX500C PO
[2023-07-07] MEDS: ACETAMINOPHEN TAB 650MG DOSE (2X325MG) PO ONE (14:48)
[2023-07-07] MEDS: IBUPROFEN 600MG TAB PO ONE (16:07)
[2023-07-07] MEDS: AMOXICILLIN 500 MG CAP PO ONE (17:14)
[2023-07-07] MEDS: ONDANSETRON 4MG ORAL DISINTEGRATING TAB PO ONE (17:26)
[2023-07-07] MEDS: predniSONE 20 MG TAB PO ONE (17:26)
[2023-07-07 17:33] LABS: BASO % 0.3 % (0.0-1.0); HEMATOCRIT 40.8 % (36.0-47.0); HEMOGLOBIN 13.7 g/dl (12.0-15.5); LYMPH # 1.6 10^3/uL (1.5-5.0); MEAN CORPUSCULAR HEMOGLOBIN 28.9 pg (27.0-33.0); MEAN CORPUSCULAR HGB CONC 33.6 g/dl (32.0-36.5); MEAN CORPUSCULAR VOLUME 86.1 fl (80.0-96.0); MONO # 0.5 10^3/uL (0.0-0.8); MONO % 4.4 % (2.0-8.0); NEUTROPHILS # 9.5 10^3/uL (1.5-8.5); PLATELET COUNT, AUTOMATED 218 10^3/uL (150-450); RED BLOOD COUNT 4.74 10^6/uL (4.00-5.40); WHITE BLOOD COUNT 11.7 10^3/uL (4.0-10.0)
[2023-07-07 17:55] LABS: LIPASE 20 U/L (12-53)
[2023-07-07 17:59] LABS: ALBUMIN 3.7 G/DL (3.2-5.2); ALKALINE PHOSPHATASE 49 U/L (46-116); ALT/SGPT 18 U/L (7.0-40); AST/SGOT 15 U/L (<34); BILIRUBIN,DIRECT 0.3 MG/DL (<0.4); BILIRUBIN,TOTAL 0.7 MG/DL (0.3-1.2); BLOOD UREA NITROGEN 9 MG/DL (9-23); CALCIUM LEVEL 8.8 MG/DL (8.5-10.1); CARBON DIOXIDE LEVEL 26 MMOL/L (20-31); CHLORIDE LEVEL 106 MMOL/L (98-107); CREATININE FOR GFR 0.64 MG/DL (0.55-1.30); GLOMERULAR FILTRATION RATE > 60.0 (>60); GLUCOSE, FASTING 89 MG/DL (60-100); POTASSIUM SERUM 3.6 MMOL/L (3.5-5.1); SODIUM LEVEL 136 MMOL/L (136-145); TOTAL PROTEIN 6.7 G/DL (5.7-8.2)
[2023-07-07] MEDS ORDERED: ONDA4TAB6 PO (18:32)
[2023-07-07] MEDS ORDERED: IBUP-1022 PO (18:32)
[2023-07-07] MEDS ORDERED: ACET-683 PO (18:32)
[2023-07-07 18:38] VITALS: BP 128/82; TEMP 99.9; O2SAT 99
== END 2023-07-07 18:39 | disposition home or self-care (01) ==
LOC: M ED 12:35
DX: J02.0 Streptococcal pharyngitis (principal); J30.2 Other seasonal allergic rhinitis
CPT/HCPCS: 80048; 80076; 83690; 85025; 99283; J7512

== ENCOUNTER 2023-07-29 09:58 | Outpatient (RCR) | payer MEDICAID | END 2023-08-10 | LOC: M OUTALCOH 09:58 | PROVIDERS: ATTEND Psychiatry & Neurology Psychiatry | DX: F12.10 Cannabis abuse, uncomplicated (principal); F14.10 Cocaine abuse, uncomplicated ==

== ENCOUNTER → 2023-07-29 | Outpatient (CLI) | payer MEDICAID ==
[~2023-07-29] MED LIST changes: +ACET-683 PO
== END ==
LOC: M SOG 07:59
PROVIDERS: ATTEND Physician Assistant
DX: M25.571 Pain in right ankle and joints of right foot (principal)

== ENCOUNTER → 2023-08-05 | Outpatient (CLI) | payer MEDICAID | LOC: M SOG 07:53 | PROVIDERS: ATTEND Physician Assistant | DX: Z53.9 Procedure and treatment not carried out, unspecified reason (principal) ==

== ENCOUNTER 2023-08-26 09:53 | Outpatient (RCR) | payer MEDICAID | END 2023-09-09 | LOC: M OUTALCOH 09:53 | PROVIDERS: ATTEND Psychiatry & Neurology Psychiatry | DX: F12.10 Cannabis abuse, uncomplicated (principal); F14.10 Cocaine abuse, uncomplicated ==

== ENCOUNTER → 2023-08-26 | Outpatient (CLI) | payer MEDICAID | LOC: M SOG 11:11 | PROVIDERS: ATTEND Physician Assistant | DX: M79.671 Pain in right foot (principal) ==

== ENCOUNTER 2023-09-23 09:56 | Outpatient (RCR) | payer MEDICAID ==
[2023-09-28] MEDS ORDERED: AMOX875T2 PO (14:27)
[2023-10-08] MEDS ORDERED: SODI88SP NARES (11:11)
[2023-10-08] MEDS ORDERED: BENA25CA4 PO (11:11)
[2023-10-08] MEDS ORDERED: GUAI100L6 PO (11:11)
[2023-10-11] MEDS ORDERED: GUAI100L55 (10:13)
[2023-10-11] MEDS ORDERED: DEEP (10:13)
[2023-10-11] MEDS ORDERED: DIPH-429 (10:13)
[2023-10-11] MEDS ORDERED: CEPH500C PO (11:41)
== END 2023-10-10 ==
LOC: M OUTALCOH 09:56
PROVIDERS: ATTEND Psychiatry & Neurology Psychiatry
DX: F12.10 Cannabis abuse, uncomplicated (principal); F14.10 Cocaine abuse, uncomplicated

== ENCOUNTER 2023-09-28 13:08 | Emergency (ER) | payer MEDICAID, OTHER ==
[~2023-09-28] VITALS: Ht 152.4 cm; Wt 80.4 kg
[2023-09-28] MEDS: AUGMENTIN 875 MG TAB PO ONE (14:07)
[2023-09-28] MEDS ORDERED: AMOX875T2 PO (14:27)
[2023-09-28 14:31] VITALS: BP 125/79; TEMP 99.6; O2SAT 99
== END 2023-09-28 14:39 | disposition home or self-care (01) ==
LOC: M ED 13:08
DX: J02.0 Streptococcal pharyngitis (principal); Z32.01 Encounter for pregnancy test, result positive; K21.9 Gastro-esophageal reflux disease without esophagitis; Z79.2 Long term (current) use of antibiotics; Z91.048 Other nonmedicinal substance allergy status

== ENCOUNTER 2023-10-08 08:53 | Emergency (ER) | payer OTHER ==
[~2023-10-08 08:53] MED LIST changes: +AMOX875T2 PO
[2023-10-08] MEDS ORDERED: GUAI100L6 PO (11:11)
[2023-10-08] MEDS ORDERED: BENA25CA4 PO (11:11)
[2023-10-08] MEDS ORDERED: SODI88SP NARES (11:11)
[2023-10-08 11:21] VITALS: BP 117/72; TEMP 97.8; O2SAT 100
== END 2023-10-08 11:23 | disposition home or self-care (01) ==
LOC: M ED 08:53
DX: O23.40 Unspecified infection of urinary tract in pregnancy, unspecified trimester (principal); J06.9 Acute upper respiratory infection, unspecified; B34.8 Other viral infections of unspecified site; Z11.52 Encounter for screening for COVID-19; Z3A.00 Weeks of gestation of pregnancy not specified; O99.330 Smoking (tobacco) complicating pregnancy, unspecified trimester

== ENCOUNTER 2023-10-11 09:56 | Emergency (ER) | payer OTHER ==
[~2023-10-11] VITALS: Ht 152.4 cm; Wt 77.2 kg
[~2023-10-11 09:56] MED LIST changes: +BENA25CA4 PO; +GUAI100L6 PO; +ONDA-282 PO; -ONDA4TAB6 PO; +SODI88SP NARES
[2023-10-11 09:57] VITALS: BP 162/88; TEMP 97.8; O2SAT 98
[2023-10-11] MEDS ORDERED: DIPH-429 (10:13)
[2023-10-11] MEDS ORDERED: DEEP (10:13)
[2023-10-11] MEDS ORDERED: GUAI100L55 (10:13)
[2023-10-11] MEDS ORDERED: CEPH500C PO (11:41)
== END 2023-10-11 11:53 | disposition home or self-care (01) ==
LOC: M ED 09:56
DX: M25.522 Pain in left elbow (principal); W57.XXXA Bitten or stung by nonvenomous insect and other nonvenomous arthropods, initial encounter; Y92.9 Unspecified place or not applicable; Y93.9 Activity, unspecified; Y99.9 Unspecified external cause status; K21.9 Gastro-esophageal reflux disease without esophagitis; J30.2 Other seasonal allergic rhinitis

== ENCOUNTER → 2023-10-28 | Outpatient (REF) | payer OTHER ==
[~2023-10-28] MED LIST changes: +CEPH500C PO; +DEEP; +DIPH-429; +GUAI100L55
== END ==
LOC: M PLALAB 14:22
PROVIDERS: ATTEND Advanced Practice Midwife
DX: Z34.91 Encounter for supervision of normal pregnancy, unspecified, first trimester (principal); Z53.8 Procedure and treatment not carried out for other reasons

== ENCOUNTER → 2023-11-04 | Outpatient (CLI) | payer OTHER ==
[2023-11-04 12:51] LABS: HEMATOCRIT 38.8 % (36.0-47.0); HEMOGLOBIN 13.3 g/dl (12.0-15.5); MEAN CORPUSCULAR HEMOGLOBIN 29.7 pg (27.0-33.0); MEAN CORPUSCULAR HGB CONC 34.3 g/dl (32.0-36.5); MEAN CORPUSCULAR VOLUME 86.6 fl (80.0-96.0); PLATELET COUNT, AUTOMATED 218 10^3/uL (150-450); RED BLOOD COUNT 4.48 10^6/uL (4.00-5.40); WHITE BLOOD COUNT 6.1 10^3/uL (4.0-10.0)
[2023-11-04 13:48] LABS: HIV 1&2 SCREEN NEGATIVE (NEGATIVE)
[2023-11-04 13:56] LABS: HEPATITIS C VIRUS ABY INDEX < 0.02 INDEX (<0.8)
[2023-11-04 14:07] LABS: GC DNA AMPLIFICATION NEGATIVE (NEGATIVE)
== END ==
LOC: M PLALAB 11:32
PROVIDERS: ATTEND Advanced Practice Midwife
DX: Z34.91 Encounter for supervision of normal pregnancy, unspecified, first trimester (principal)

== ENCOUNTER 2023-11-09 11:53 | Emergency (ER) | payer OTHER ==
[~2023-11-09] VITALS: Ht 152.4 cm; Wt 74.6 kg
[2023-11-09 15:10] VITALS: BP 115/55; TEMP 98.1; O2SAT 100
== END 2023-11-09 15:18 | disposition home or self-care (01) ==
LOC: M ED 11:53
DX: S93.401A Sprain of unspecified ligament of right ankle, initial encounter (principal); W10.8XXA Fall (on) (from) other stairs and steps, initial encounter; Y92.009 Unspecified place in unspecified non-institutional (private) residence as the place of occurrence of the external cause; Y93.89 Activity, other specified; Y99.9 Unspecified external cause status; J30.2 Other seasonal allergic rhinitis; Z79.899 Other long term (current) drug therapy

== ENCOUNTER 2023-11-20 13:37 | Emergency (ER) | payer OTHER ==
[~2023-11-20] VITALS: Ht 152.4 cm; Wt 74.0 kg
[2023-11-20] MEDS ORDERED: MULTTAB20 PO (13:55)
[2023-11-20] MEDS ORDERED: NAPR500T6 PO (17:03)
[2023-11-20] MEDS ORDERED: CYCL-707 PO (17:03)
[2023-11-20 17:17] VITALS: BP 113/75; TEMP 97.7; O2SAT 100
== END 2023-11-20 17:18 | disposition home or self-care (01) ==
LOC: M ED 13:37
DX: M54.50 Low back pain, unspecified (principal); Z3A.13 13 weeks gestation of pregnancy; J30.2 Other seasonal allergic rhinitis

== ENCOUNTER 2023-12-12 12:42 | Emergency (ER) | payer OTHER ==
[~2023-12-12] VITALS: Ht 152.4 cm; Wt 75.0 kg
[~2023-12-12 12:42] MED LIST changes: +MULTTAB20 PO; +NAPR500T6 PO
[2023-12-12 12:43] VITALS: BP 118/56; TEMP 98; O2SAT 99
[2023-12-13] MEDS ORDERED: FLON1SPR NARES (01:58)
== END 2023-12-13 02:22 | disposition home or self-care (01) ==
LOC: M ED 12:42
DX: J06.9 Acute upper respiratory infection, unspecified (principal); K21.9 Gastro-esophageal reflux disease without esophagitis; R51.9 Headache, unspecified

== ENCOUNTER 2023-12-17 09:27 | Emergency (ER) | payer MEDICAID, OTHER ==
[~2023-12-17] VITALS: Ht 152.4 cm; Wt 72.1 kg
[~2023-12-17 09:27] MED LIST changes: +FLON1SPR NARES
[2023-12-17] MEDS: NS 1,000 ML IV ONE (12:37)
[2023-12-17] MEDS ORDERED: AMOX875T2 PO (14:50)
[2023-12-17] MEDS ORDERED: CEFD1CAP9 PO (14:54)
[2023-12-17] MEDS ORDERED: BENZ200C70 PO (14:54)
[2023-12-17 14:58] VITALS: BP 104/58; TEMP 98; O2SAT 99
== END 2023-12-17 15:18 | disposition home or self-care (01) ==
LOC: M ED 09:27
DX: O99.512 Diseases of the respiratory system complicating pregnancy, second trimester (principal); O99.891 Other specified diseases and conditions complicating pregnancy; H66.91 Otitis media, unspecified, right ear; O26.892 Other specified pregnancy related conditions, second trimester; O99.332 Smoking (tobacco) complicating pregnancy, second trimester; F17.290 Nicotine dependence, other tobacco product, uncomplicated; Z3A.17 17 weeks gestation of pregnancy

== ENCOUNTER → 2024-01-01 | Outpatient (CLI) | payer MEDICAID, OTHER ==
[~2024-01-01] MED LIST changes: +BENZ200C70 PO; +CEFD1CAP9 PO
== END ==
LOC: M WHC 08:08
PROVIDERS: ATTEND Obstetrics & Gynecology
DX: O44.32 Partial placenta previa with hemorrhage, second trimester (principal); Z3A.18 18 weeks gestation of pregnancy; O41.8X20 Other specified disorders of amniotic fluid and membranes, second trimester, not applicable or unspecified

== ENCOUNTER → 2024-01-29 | Outpatient (CLI) | payer MEDICAID | LOC: M RAD 13:00 | PROVIDERS: ATTEND Obstetrics & Gynecology | DX: O43.892 Other placental disorders, second trimester (principal); Z3A.23 23 weeks gestation of pregnancy ==

== ENCOUNTER → 2024-02-26 | Outpatient (CLI) | payer OTHER, SELFPAY ==
[~2024-02-26] MED LIST changes: +NAPR-1405 PO; -NAPR500T6 PO
[2024-02-26 16:06] LABS: HEMATOCRIT 38.2 % (36.0-47.0); HEMOGLOBIN 12.4 g/dl (12.0-15.5); MEAN CORPUSCULAR HEMOGLOBIN 29.2 pg (27.0-33.0); MEAN CORPUSCULAR HGB CONC 32.5 g/dl (32.0-36.5); MEAN CORPUSCULAR VOLUME 89.9 fl (80.0-96.0); PLATELET COUNT, AUTOMATED 195 10^3/uL (150-450); RED BLOOD COUNT 4.25 10^6/uL (4.00-5.40)
[2024-02-26 16:31] LABS: GLUCOSE CHALLENGE TEST 1 HOUR 90 MG/DL (LESS THAN 140)
[2024-02-26 16:59] LABS: HIV 1&2 SCREEN NEGATIVE (NEGATIVE)
[2024-02-26 17:07] LABS: HEPATITIS C VIRUS ABY INDEX 0.02 INDEX (<0.8)
[2024-02-26 17:34] LABS: GC DNA AMPLIFICATION NEGATIVE (NEGATIVE)
== END ==
LOC: M PLALAB 12:25
PROVIDERS: ATTEND Specialist
DX: Z34.82 Encounter for supervision of other normal pregnancy, second trimester (principal)

== ENCOUNTER → 2024-03-04 | Outpatient (REF) | payer MEDICAID, SELFPAY ==
[2024-03-04 18:10] LABS: Trichomonas vaginalis (AMP) NOT DETECTED (NEGATIVE)
[2024-03-04 18:33] LABS: GC DNA AMPLIFICATION NEGATIVE (NEGATIVE)
[2024-03-04 19:13] LABS: ALBUMIN 2.7 G/DL (3.2-5.2); ALKALINE PHOSPHATASE 59 U/L (46-116); ALT/SGPT < 9 U/L (7.0-40); AST/SGOT 10 U/L (<34); BILIRUBIN,TOTAL 0.2 MG/DL (0.3-1.2); BLOOD UREA NITROGEN 9 MG/DL (9-23); CALCIUM LEVEL 8.4 MG/DL (8.5-10.1); CARBON DIOXIDE LEVEL 24 MMOL/L (20-31); CHLORIDE LEVEL 108 MMOL/L (98-107); CHOLESTEROL LEVEL 152 MG/DL (<200); CHOLESTEROL RISK RATIO 2.84 (<5); CREATININE FOR GFR 0.54 MG/DL (0.55-1.30); GLOMERULAR FILTRATION RATE > 60.0 (>60); GLUCOSE, FASTING 76 MG/DL (60-100); HDL CHOLESTEROL 53.5 MG/DL (>40); LDL CHOLESTEROL 61.5 MG/DL (<100); NON-HDL-C 98.5 MG/DL; POTASSIUM SERUM 4.1 MMOL/L (3.5-5.1); SODIUM LEVEL 136 MMOL/L (136-145); TOTAL PROTEIN 6.3 G/DL (5.7-8.2); TRIGLYCERIDES LEVEL 185 MG/DL (<150)
[2024-03-04 19:15] LABS: THYROID STIMULATING HORMONE 2.592 uIU/ML (0.55-4.78)
[2024-03-04 19:22] LABS: HEMOGLOBIN A1c 4.7 % (4.0-6.0)
== END ==
LOC: M LAB REF 16:28
PROVIDERS: ATTEND Physician Assistant
DX: E55.9 Vitamin D deficiency, unspecified (principal); E66.9 Obesity, unspecified; Z11.9 Encounter for screening for infectious and parasitic diseases, unspecified

== ENCOUNTER 2024-03-05 14:31 | Outpatient (CLI) | payer SELFPAY, MEDICAID ==
[~2024-03-05] VITALS: Ht 152.4 cm; Wt 75.4 kg
[2024-03-05 14:45] VITALS: BP 109/73
[2024-03-05] MEDS ORDERED: HOME MED LIST COMPLETE! XX SCH (14:55)
[2024-03-05 16:17] LABS: BASO % 0.3 % (0.0-1.0); EOS % 0.4 % (0.0-3.0); HEMATOCRIT 34.9 % (36.0-47.0); HEMOGLOBIN 11.6 g/dl (12.0-15.5); LYMPH # 1.7 10^3/uL (1.5-5.0); LYMPH % 23.2 % (24.0-44.0); MEAN CORPUSCULAR HEMOGLOBIN 28.6 pg (27.0-33.0); MEAN CORPUSCULAR HGB CONC 33.2 g/dl (32.0-36.5); MONO # 0.4 10^3/uL (0.0-0.8); NEUTROPHILS # 5.2 10^3/uL (1.5-8.5); NEUTROPHILS % 70.7 % (36.0-66.0); PLATELET COUNT, AUTOMATED 179 10^3/uL (150-450); RED BLOOD COUNT 4.06 10^6/uL (4.00-5.40); WHITE BLOOD COUNT 7.4 10^3/uL (4.0-10.0)
[2024-03-05 16:26] LABS: AMPHETAMINES URINE REFLEX NEGATIVE (NEGATIVE)
[2024-03-05 16:27] LABS: BARBITURATES URINE REFLEX NEGATIVE (NEGATIVE); BENZODIAZEPINES URINE REFLEX NEGATIVE (NEGATIVE); CANNABINOIDS URINE REFLEX NEGATIVE (NEGATIVE); COCAINE METABOLITE URINE REFLE NEGATIVE (NEGATIVE); METHADONE URINE REFLEX NEGATIVE (NEGATIVE); OPIATES URINE REFLEX NEGATIVE (NEGATIVE); PHENCYCLIDINE URINE REFLEX NEGATIVE (NEGATIVE)
[2024-03-05 16:31] LABS: ALBUMIN 2.5 G/DL (3.2-5.2); ALKALINE PHOSPHATASE 56 U/L (35-104); ALT/SGPT < 9 U/L (7.0-40); AST/SGOT 8 U/L (<34); BILIRUBIN,TOTAL 0.3 MG/DL (0.3-1.2); BLOOD UREA NITROGEN 6 MG/DL (9-23); CALCIUM LEVEL 8.7 MG/DL (8.5-10.1); CARBON DIOXIDE LEVEL 23 MMOL/L (20-31); CHLORIDE LEVEL 109 MMOL/L (98-107); GLOMERULAR FILTRATION RATE > 60.0 (>60); GLUCOSE, FASTING 95 MG/DL (60-100); POTASSIUM SERUM 3.7 MMOL/L (3.5-5.1); SODIUM LEVEL 137 MMOL/L (136-145)
== END 2024-03-05 17:00 | disposition home or self-care (01) ==
LOC: M LDO 14:31
PROVIDERS: ATTEND Obstetrics & Gynecology
DX: O26.893 Other specified pregnancy related conditions, third trimester (principal); R00.2 Palpitations; Z3A.28 28 weeks gestation of pregnancy
CPT/HCPCS: 36415; 59025; 80053; 80307; 81001; 84443; 85025; 87086; G0463

== ENCOUNTER → 2024-03-20 | Outpatient (REF) | payer MEDICAID | LOC: M LAB REF 17:23 | PROVIDERS: ATTEND Physician Assistant Medical | DX: J02.9 Acute pharyngitis, unspecified (principal) ==

== ENCOUNTER → 2024-04-13 | Outpatient (CLI) | payer MEDICAID | LOC: M RAD 14:32 | PROVIDERS: ATTEND Advanced Practice Midwife | DX: O26.13 Low weight gain in pregnancy, third trimester (principal); Z3A.34 34 weeks gestation of pregnancy ==

== ENCOUNTER → 2024-04-29 | Outpatient (REF) | payer OTHER | LOC: M PLALAB 15:26 | PROVIDERS: ATTEND Nurse Practitioner Family | DX: Z34.93 Encounter for supervision of normal pregnancy, unspecified, third trimester (principal); Z3A.36 36 weeks gestation of pregnancy ==

== ENCOUNTER → 2024-06-25 | Outpatient (CLI) | payer MEDICAID ==
[~2024-06-25] MED LIST changes: +COLA100C5 PO
[2024-06-25 14:50] LABS: HEMATOCRIT 40.1 % (36.0-47.0); HEMOGLOBIN 13.2 g/dl (12.0-15.5); MEAN CORPUSCULAR HEMOGLOBIN 28.6 pg (27.0-33.0); MEAN CORPUSCULAR HGB CONC 32.9 g/dl (32.0-36.5); PLATELET COUNT, AUTOMATED 265 10^3/uL (150-450); RED BLOOD COUNT 4.61 10^6/uL (4.00-5.40); WHITE BLOOD COUNT 6.8 10^3/uL (4.0-10.0)
[2024-06-25 15:15] LABS: INR 0.95; PARTIAL THROMBOPLASTIN TIME 28.3 SECONDS (24.8-34.2)
== END ==
LOC: M PLALAB 12:49
PROVIDERS: ATTEND Obstetrics & Gynecology
DX: N93.9 Abnormal uterine and vaginal bleeding, unspecified (principal)

== ENCOUNTER → 2025-03-15 | Outpatient (REF) | payer OTHER ==
[~2025-03-15] MED LIST changes: -IBUP-1022 PO; +IBUP600T42 PO; +LIDO1ADH93 TD; -LIDO5DIS41 TD; +MELO15TA28 PO
[2025-03-15 16:58] LABS: BASO # 0.0 10^3/uL (0.0-0.2); BASO % 0.6 % (0.0-1.0); EOS # 0.2 10^3/uL (0.0-0.5); EOS % 2.3 % (0.0-3.0); LYMPH # 2.4 10^3/uL (1.5-5.0); LYMPH % 34.8 % (24.0-44.0); MONO # 0.5 10^3/uL (0.0-0.8); MONO % 6.7 % (2.0-8.0); NEUTROPHILS # 3.8 10^3/uL (1.5-8.5); NEUTROPHILS % 55.5 % (36.0-66.0); PLATELET COUNT, AUTOMATED 270 10^3/uL (150-450)
[2025-03-15 17:05] LABS: ALT/SGPT 29 U/L (7.0-40); AST/SGOT 28 U/L (<34); CALCIUM LEVEL 8.7 MG/DL (8.5-10.1); CARBON DIOXIDE LEVEL 26 MMOL/L (20-31); CHLORIDE LEVEL 105 MMOL/L (98-107); CHOLESTEROL LEVEL 116 MG/DL (<200); CHOLESTEROL RISK RATIO 3.24 (<5); CREATININE FOR GFR 0.71 MG/DL (0.55-1.30); GLOMERULAR FILTRATION RATE > 90.0 (>60); LDL CHOLESTEROL 40.0 MG/DL (<100); MAGNESIUM LEVEL 1.9 MG/DL (1.8-2.4); NON-HDL-C 80.2 MG/DL; POTASSIUM SERUM 4.6 MMOL/L (3.5-5.1); SODIUM LEVEL 138 MMOL/L (136-145); TRIGLYCERIDES LEVEL 201 MG/DL (<150)
[2025-03-15 17:23] LABS: ESTIMATED AVERAGE GLUCOSE 111.0 MG/DL (60-110)
== END ==
LOC: M LAB REF 16:24
PROVIDERS: ATTEND Physician Assistant
DX: E66.9 Obesity, unspecified (principal); E78.1 Pure hyperglyceridemia

== ENCOUNTER → 2025-03-30 | Outpatient (CLI) | payer OTHER | LOC: M RAD 13:43 | PROVIDERS: ATTEND Physician Assistant | DX: R05.8 Other specified cough (principal) ==